=== PATIENT | male | born 1960 | race Caucasian/White ===

== ENCOUNTER 2020-07-24 08:27 | Outpatient (REF) | payer OTHER, SELFPAY ==
--- NOTE | 2020-07-24 08:37 | XR_ITS ---
EXAMINATION: XR RIBS, BILATERAL. Chest. CLINICAL INFORMATION: Chest and bilateral RIBS. COMPARISON: None TECHNIQUE: 3 views of the bilateral ribs were obtained. Chest one view. FINDINGS: Chest: Lungs are clear. No consolidation, pneumothorax, or pleural effusion. The cardiomediastinal silhouette and pulmonary vasculature are normal. BILATERAL RIBS: Multiple views of bilateral ribs reveal no visible fracture or bony abnormality. There is moderate spondylosis dorsal spine. XR/XR ribs BI 3V IMPRESSION: Unremarkable chest exam. Unremarkable bilateral rib exam.
== END 2020-07-24 08:28 | disposition home or self-care (01) ==
LOC: HO.XRAY 08:27
PROVIDERS: Visit Provider Family Medicine
DX: R07.81 Pleurodynia (principal)
CPT/HCPCS: 71110

== ENCOUNTER 2022-06-02 09:05 | Outpatient (REF) | payer OTHER, SELFPAY | END 2022-06-02 09:06 | disposition home or self-care (01) | LOC: HO.LAB 09:05 | PROVIDERS: Visit Provider Surgery | DX: L02.91 Cutaneous abscess, unspecified (principal) | CPT/HCPCS: 10060; 10061; 87070; 87077; 87186; 87205; 99202 ==

== ENCOUNTER 2022-08-24 12:05 | Outpatient (REF) | payer OTHER, SELFPAY ==
--- NOTE | ~2022-08-24 | XR_ITS ---
EXAMINATION: XR FINGER, LEFT CLINICAL INFORMATION: Left finger pain, question of foreign body. COMPARISON: None TECHNIQUE: 3 views of the left hand third digit. FINDINGS: In the volar soft tissues of the distal tip of the third digit is a triangular shaped mildly radiopaque density. A similar, but smaller adjacent ovoid shaped density is also seen. The underlying distal phalanx is intact. The remainder the digits are unremarkable. XR/XR finger LT min 2V IMPRESSION: Probable radiopaque foreign bodies overlying the volar soft tissues of the distal tip of the third digit correlating with patient history. No acute underlying osseous abnormality. .
== END 2022-08-24 12:06 | disposition home or self-care (01) ==
LOC: HO.XRAY 12:05
PROVIDERS: PCP Family Medicine; Visit Provider Family Medicine
DX: M79.645 Pain in left finger(s) (principal)
CPT/HCPCS: 73140

== ENCOUNTER 2022-09-03 13:17 | Outpatient (REF) | payer OTHER, SELFPAY ==
--- NOTE | 2022-09-03 09:30 | EMG_ITS ---
Right tibial and peroneal motor studies were performed. Right superficial peroneal and sural sensory studies were performed. Tibial H-reflex was obtained. Needle examination was performed. IMPRESSION: [id number] sensory and motor peripheral neuropathy. MD JOSÉ MIGUEL Peters/LARY / [id number]
== END 2022-09-03 13:18 | disposition home or self-care (01) ==
LOC: HO.NEURO 13:17
PROVIDERS: Visit Provider Family Medicine
DX: E11.51 Type 2 diabetes mellitus with diabetic peripheral angiopathy without gangrene (principal); E11.65 Type 2 diabetes mellitus with hyperglycemia; I10 Essential (primary) hypertension; E78.5 Hyperlipidemia, unspecified; M79.662 Pain in left lower leg; Q24.8 Other specified congenital malformations of heart
CPT/HCPCS: 95886; 95909

== ENCOUNTER 2023-04-26 08:17 | Outpatient (REF) | payer OTHER, SELFPAY ==
[2023-04-26 11:39] LABS: MANUAL DIFF FLAG NO
[2023-04-26 11:46] LABS: Basophils Percent Auto 0.7 % (0-2); Eosinophils Absolute Auto 0.1 X10*3/uL (0.0-0.4); Eosinophils Percent Auto 1.4 % (0-4); Hematocrit 44.6 % (42.0-52.0); Hemoglobin 15.6 g/dl (14.0-18.0); Imm Gran Abs Auto 0.01 X10*3/uL (0.00-0.03); Imm Gran Pct Auto 0.2 % (0.0-0.4); Lymphocytes Absolute Auto 1.2 X10*3/uL (1.2-4.9); Mean Corpuscular Hemoglobin 31.4 pg (27.0-33.0); Mean Corpuscular Volume 89.7 fL (80.0-98.0); Mean Platelet Volume 11.7 fL (9.4-12.4); Monocytes Absolute Auto 0.4 X10*3/uL (0.1-1.2); Monocytes Percent Auto 7.9 % (2-11); Neutrophils Absolute Auto 2.8 x10*3/uL (2.0-8.3); Neutrophils Percent Auto 62.8 % (45-73); Platelet Count 154 X10*3/uL (160-400); Red Blood Count 4.97 X10*6/uL (4.60-5.80); Red Cell Distribution Width 12.4 % (11.0-16.0); White Blood Count 4.4 X10*3/uL (4.8-10.8)
[2023-04-26 12:07] LABS: Alanine Aminotransferase 14 U/L (0-40); Albumin Level 4.5 g/dL (3.5-5.0); Alkaline Phosphatase 70 U/L (39-117); Anion Gap 12 (12-20); Aspartate Amino Transferase 16 U/L (5-37); Bilirubin Total 0.3 mg/dL (0.0-1.0); Blood Urea Nitrogen 21 mg/dL (9-16); Calcium 10.1 mg/dL (8.4-10.2); Carbon Dioxide 28 mmol/L (22-29); Chloride 104 mmol/L (96-108); Estimated Glomerular Filt Rate > 60; Glucose Random 198 mg/dL (60-115); Potassium 4.5 mmol/L (3.3-5.1); Sodium 139 mmol/L (135-145); Total Protein 7.1 g/dL (6.5-8.0)
[2023-04-26 12:24] LABS: TSH reflex Free T4 0.96 uIU/mL (0.32-4.0)
[2023-04-26 12:30] LABS: Cholesterol 232 mg/dL (<200); HDL Cholesterol 38 mg/dL (>40); LDL Cholesterol Calculated 173 mg/dL (<100); Triglycerides 107 mg/dL (<150)
[2023-04-26 12:31] LABS: Creatinine Urine 81.72 mg/dL; Microalbum/Creatinine Ratio Ur 13.4 ug/mg cr (<30)
[2023-04-26 12:59] LABS: Folate 14.1 ng/mL (> or = 4.0); Prostate Specific Antigen 0.42 ng/mL (<0.05-4.0); Vitamin B12 412 pg/mL (200-900)
[2023-04-26 14:42] LABS: Reflex LDLD? No
[2023-05-02 03:04] LABS: Testosterone, Free 40.6 pg/mL (35.0-155.0); Testosterone, Total 414 ng/dL (250-1100)
== END 2023-04-26 08:18 | disposition home or self-care (01) ==
LOC: HO.HHCL 08:17
PROVIDERS: Visit Provider Family Medicine
DX: R63.4 Abnormal weight loss (principal); N52.9 Male erectile dysfunction, unspecified; E11.65 Type 2 diabetes mellitus with hyperglycemia; Z12.5 Encounter for screening for malignant neoplasm of prostate
CPT/HCPCS: 36415; 80053; 80061; 82043; 82570; 82607; 82746; 84153; 84402; 84403; 84443; 85025

== ENCOUNTER 2023-06-03 08:50 | Outpatient (REF) | payer OTHER, SELFPAY ==
--- NOTE | ~2023-06-03 | CT_ITS ---
EXAMINATION: CT ABDOMEN AND PELVIS WITH CONTRAST CLINICAL INFORMATION: Weight loss, nausea, vomiting. COMPARISON: CT abdomen and pelvis 02/23/2019. TECHNIQUE: Multidetector volumetric images were obtained from the superior aspect of the liver through the pubic symphysis following administration 85 mL of Omnipaque 350 intravenous contrast. Sagittal and coronal reformatted images were obtained on the technologist's workstation. Oral contrast: No This CT examination was performed using dose optimization techniques as appropriate, variously including the following: *Automated exposure control *Adjustment of mA and/or kV according to patient size (this includes techniques or standardized protocols for targeted exams where dose is matched to indication/reason for exam; i.e. extremities or head) *Use of iterative reconstruction technique DLP: 364 mGy-cm FINDINGS: LUNG BASES: Motion artifact limits evaluation but no suspicious nodule. Small hiatal hernia. LIVER, GALLBLADDER, AND BILIARY TREE: The liver is normal in size, shape, and attenuation. No focal hepatic lesion or biliary ductal dilatation is present. The gallbladder is unremarkable with no evidence of radiopaque gallstones, gallbladder wall thickening, or obvious pericholecystic inflammatory changes. PANCREAS: No discrete pancreatic mass. No pancreatic ductal dilatation. SPLEEN: The spleen is enlarged measuring 14.1 cm. No mass. ADRENAL GLANDS: No adrenal mass. KIDNEYS AND URETERS: The kidneys measure long in length 14.0 cm on the right and 14.3 cm on the left. Symmetric nephrograms. Simple cyst in the mid left kidney posteriorly. Additional tiny cortical hypodensities in both kidneys are too small to characterize but likely cysts. No nephrolithiasis or hydronephrosis. BLADDER: Unremarkable. GASTROINTESTINAL TRACT: The small bowel is normal in caliber. The appendix appears normal. Large bowel is normal in caliber. No focal inflammatory changes. No mesenteric mass or fluid. ABDOMINAL WALL: Small fat-containing periumbilical hernia. LYMPH NODES: No lymphadenopathy. VASCULAR: Mild aortoiliac atherosclerosis. No aortic aneurysm. PELVIC VISCERA: Unremarkable. OSSEOUS STRUCTURES: Degenerative changes in the spine. CT/CT abdomen pelvis w IV con IMPRESSION: Enlarged kidneys may relate to body habitus. This can be seen with nephropathy. Correlate with history, renal function and urinalysis. Mild nonspecific splenomegaly. No lymphadenopathy. No abdominal mass. Fleischner guidelines were followed.
[2023-06-03] MEDS: iohexoL 350 MG/ML 100 ML INFUS..BTL 85 ML IV (11:19)
[2023-06-03] MEDS: Barium Sulfate Oral (Berry) 450 ML ORAL.SUSP 900 ML PO (11:19)
[2023-06-04 08:07] LABS: Creatinine POC 0.6 mg/dL (0.5-1.4); GFR POC > 60
== END 2023-06-03 08:51 | disposition home or self-care (01) ==
LOC: HO.CT 08:50
PROVIDERS: Visit Provider Family Medicine
DX: R11.0 Nausea (principal); D12.6 Benign neoplasm of colon, unspecified
CPT/HCPCS: 74177; 82565; Q9967

== ENCOUNTER 2023-07-27 15:05 | Outpatient (REF) | payer OTHER, SELFPAY ==
--- NOTE | ~2023-07-27 | XR_ITS ---
EXAMINATION: XR CERVICAL SPINE CLINICAL INFORMATION: Chronic neck pain. Patient states 2 months of neck pain COMPARISON: None available. TECHNIQUE: Following views of the cervical spine were obtained. FINDINGS: The tip of the odontoid is partly obscured on the open-mouth view. There is no fracture. Prevertebral soft tissues are within normal limits. The height of the vertebral bodies and disc spaces is well-maintained. There is no subluxation. A few early marginal osteophytes are seen. The neural foramina are patent. XR/XR cervical spine 4V IMPRESSION: 1. No acute bony abnormality. 2. A few early marginal osteophytes are seen.
== END 2023-07-27 15:06 | disposition home or self-care (01) ==
LOC: HO.HHCX 15:05
PROVIDERS: Visit Provider Family Medicine
DX: M54.2 Cervicalgia (principal)
CPT/HCPCS: 72050

== ENCOUNTER 2024-03-02 11:09 | Outpatient (REF) | payer OTHER, SELFPAY ==
[2024-03-02 13:07] LABS: MANUAL DIFF FLAG NO
[2024-03-02 13:13] LABS: Basophils Percent Auto 0.6 % (0-2); Eosinophils Absolute Auto 0.1 X10*3/uL (0.0-0.4); Eosinophils Percent Auto 0.9 % (0-4); Hematocrit 43.4 % (42.0-52.0); Hemoglobin 14.8 g/dl (14.0-18.0); Imm Gran Abs Auto 0.04 X10*3/uL (0.00-0.03); Imm Gran Pct Auto 0.6 % (0.0-0.4); Lymphocytes Absolute Auto 0.7 X10*3/uL (1.2-4.9); Lymphocytes Percent Auto 10.1 % (20-40); Mean Corpuscular HGB Conc 34.1 g/dl (31.0-36.0); Mean Corpuscular Hemoglobin 31.2 pg (27.0-33.0); Mean Corpuscular Volume 91.4 fL (80.0-98.0); Monocytes Absolute Auto 0.4 X10*3/uL (0.1-1.2); Monocytes Percent Auto 6.3 % (2-11); Neutrophils Absolute Auto 5.4 x10*3/uL (2.0-8.3); Neutrophils Percent Auto 81.5 % (45-73); Platelet Count 143 X10*3/uL (160-400); Red Blood Count 4.75 X10*6/uL (4.60-5.80); Red Cell Distribution Width 12.5 % (11.0-16.0); White Blood Count 6.7 X10*3/uL (4.8-10.8)
[2024-03-02 13:36] LABS: Alanine Aminotransferase 13 U/L (0-40); Albumin Level 4.4 g/dL (3.5-5.0); Alkaline Phosphatase 66 U/L (39-117); Anion Gap 15 (12-20); Aspartate Amino Transferase 13 U/L (5-37); Bilirubin Total 0.4 mg/dL (0.0-1.0); Blood Urea Nitrogen 18 mg/dL (9-16); C Reactive Protein 0.44 mg/dL (< or = 0.50); Calcium 9.9 mg/dL (8.4-10.2); Carbon Dioxide 26 mmol/L (22-29); Chloride 101 mmol/L (96-108); Cholesterol 219 mg/dL (<200); Estimated Glomerular Filt Rate > 60; Glucose Random 298 mg/dL (60-115); HDL Cholesterol 43 mg/dL (>40); LDL Cholesterol Calculated 150 mg/dL (<100); Sodium 138 mmol/L (135-145); Triglycerides 134 mg/dL (<150)
[2024-03-02 13:51] LABS: Erythrocyte Sedimentation Rate 3 MM/HR (0-15)
[2024-03-02 13:58] LABS: Microalbumin Urine < 5.0 mg/L
[2024-03-02 14:02] LABS: Reflex LDLD? No
[2024-03-02 14:03] LABS: Folate 13.4 ng/mL (> or = 4.0); Vitamin B12 302 pg/mL (200-900)
[2024-03-02 14:08] LABS: Uric Acid 3.5 mg/dL (3.4-7.0)
== END 2024-03-02 11:10 | disposition home or self-care (01) ==
LOC: HO.HHCL 11:09
PROVIDERS: Visit Provider Family Medicine
DX: M79.642 Pain in left hand (principal); M79.641 Pain in right hand; E11.65 Type 2 diabetes mellitus with hyperglycemia; D69.6 Thrombocytopenia, unspecified; E78.5 Hyperlipidemia, unspecified; I10 Essential (primary) hypertension
CPT/HCPCS: 36415; 80053; 80061; 82570; 82607; 82746; 84550; 85025; 85652; 86140

== ENCOUNTER 2024-03-06 08:51 | Outpatient (REF) | payer OTHER, SELFPAY ==
--- NOTE | ~2024-03-06 | XR_ITS ---
EXAMINATION: 1. RADIOGRAPHS RIGHT HAND 2. RADIOGRAPHS LEFT HAND 3. RADIOGRAPHS RIGHT KNEE 4. RADIOGRAPHS LEFT KNEE CLINICAL INFORMATION: Bilateral hand pain and swelling. Chronic bilateral knee pain. No known injury. COMPARISON: Left finger x-rays 08/24/2022 and bilateral knee x-rays 05/17/2019 TECHNIQUE: 3 views of each hand and 3 views of each knee were obtained. FINDINGS: Right hand: Visualized portion of the distal right radius and ulna demonstrate no fracture. Carpal rows are maintained. No carpal bone fracture. No metacarpal or phalangeal fracture. Mild degenerative changes of scattered IP joints. No localized soft tissue swelling. Left hand: Visualized portion of the distal left radius and ulna demonstrate no fracture. Carpal rows are maintained. No carpal bone fracture. No metacarpal or phalangeal fracture. Mild degenerative changes of scattered IP joints. No localized soft tissue swelling. Right knee: No fracture or dislocation. No suprapatellar joint effusion. Mild narrowing of the medial joint space height. No localized soft tissue swelling. Vascular calcifications noted. Left knee: No fracture or dislocation. No suprapatellar joint effusion. Mild narrowing of the medial joint space height. No localized soft tissue swelling. Vascular catheter lesions noted. XR/XR hand RT min 3V IMPRESSION: 1. Mild degenerative changes of both hands without fracture. 2. Mild degenerative changes of both knees without fracture, dislocation or joint effusion.
--- NOTE | ~2024-03-06 | XR_ITS ---
EXAMINATION: 1. RADIOGRAPHS RIGHT HAND 2. RADIOGRAPHS LEFT HAND 3. RADIOGRAPHS RIGHT KNEE 4. RADIOGRAPHS LEFT KNEE CLINICAL INFORMATION: Bilateral hand pain and swelling. Chronic bilateral knee pain. No known injury. COMPARISON: Left finger x-rays 08/24/2022 and bilateral knee x-rays 05/17/2019 TECHNIQUE: 3 views of each hand and 3 views of each knee were obtained. FINDINGS: Right hand: Visualized portion of the distal right radius and ulna demonstrate no fracture. Carpal rows are maintained. No carpal bone fracture. No metacarpal or phalangeal fracture. Mild degenerative changes of scattered IP joints. No localized soft tissue swelling. Left hand: Visualized portion of the distal left radius and ulna demonstrate no fracture. Carpal rows are maintained. No carpal bone fracture. No metacarpal or phalangeal fracture. Mild degenerative changes of scattered IP joints. No localized soft tissue swelling. Right knee: No fracture or dislocation. No suprapatellar joint effusion. Mild narrowing of the medial joint space height. No localized soft tissue swelling. Vascular calcifications noted. Left knee: No fracture or dislocation. No suprapatellar joint effusion. Mild narrowing of the medial joint space height. No localized soft tissue swelling. Vascular catheter lesions noted. XR/XR hand LT min 3V IMPRESSION: 1. Mild degenerative changes of both hands without fracture. 2. Mild degenerative changes of both knees without fracture, dislocation or joint effusion.
--- NOTE | ~2024-03-06 | XR_ITS ---
EXAMINATION: 1. RADIOGRAPHS RIGHT HAND 2. RADIOGRAPHS LEFT HAND 3. RADIOGRAPHS RIGHT KNEE 4. RADIOGRAPHS LEFT KNEE CLINICAL INFORMATION: Bilateral hand pain and swelling. Chronic bilateral knee pain. No known injury. COMPARISON: Left finger x-rays 08/24/2022 and bilateral knee x-rays 05/17/2019 TECHNIQUE: 3 views of each hand and 3 views of each knee were obtained. FINDINGS: Right hand: Visualized portion of the distal right radius and ulna demonstrate no fracture. Carpal rows are maintained. No carpal bone fracture. No metacarpal or phalangeal fracture. Mild degenerative changes of scattered IP joints. No localized soft tissue swelling. Left hand: Visualized portion of the distal left radius and ulna demonstrate no fracture. Carpal rows are maintained. No carpal bone fracture. No metacarpal or phalangeal fracture. Mild degenerative changes of scattered IP joints. No localized soft tissue swelling. Right knee: No fracture or dislocation. No suprapatellar joint effusion. Mild narrowing of the medial joint space height. No localized soft tissue swelling. Vascular calcifications noted. Left knee: No fracture or dislocation. No suprapatellar joint effusion. Mild narrowing of the medial joint space height. No localized soft tissue swelling. Vascular catheter lesions noted. XR/XR knee LT 3V IMPRESSION: 1. Mild degenerative changes of both hands without fracture. 2. Mild degenerative changes of both knees without fracture, dislocation or joint effusion.
--- NOTE | ~2024-03-06 | XR_ITS ---
EXAMINATION: 1. RADIOGRAPHS RIGHT HAND 2. RADIOGRAPHS LEFT HAND 3. RADIOGRAPHS RIGHT KNEE 4. RADIOGRAPHS LEFT KNEE CLINICAL INFORMATION: Bilateral hand pain and swelling. Chronic bilateral knee pain. No known injury. COMPARISON: Left finger x-rays 08/24/2022 and bilateral knee x-rays 05/17/2019 TECHNIQUE: 3 views of each hand and 3 views of each knee were obtained. FINDINGS: Right hand: Visualized portion of the distal right radius and ulna demonstrate no fracture. Carpal rows are maintained. No carpal bone fracture. No metacarpal or phalangeal fracture. Mild degenerative changes of scattered IP joints. No localized soft tissue swelling. Left hand: Visualized portion of the distal left radius and ulna demonstrate no fracture. Carpal rows are maintained. No carpal bone fracture. No metacarpal or phalangeal fracture. Mild degenerative changes of scattered IP joints. No localized soft tissue swelling. Right knee: No fracture or dislocation. No suprapatellar joint effusion. Mild narrowing of the medial joint space height. No localized soft tissue swelling. Vascular calcifications noted. Left knee: No fracture or dislocation. No suprapatellar joint effusion. Mild narrowing of the medial joint space height. No localized soft tissue swelling. Vascular catheter lesions noted. XR/XR knee RT 3V IMPRESSION: 1. Mild degenerative changes of both hands without fracture. 2. Mild degenerative changes of both knees without fracture, dislocation or joint effusion.
== END 2024-03-06 08:52 | disposition home or self-care (01) ==
LOC: HO.HHCX 08:51
PROVIDERS: Visit Provider Family Medicine
DX: M25.561 Pain in right knee (principal); M25.562 Pain in left knee; G89.29 Other chronic pain; M79.642 Pain in left hand; M79.641 Pain in right hand
CPT/HCPCS: 73130; 73562

== ENCOUNTER → 2024-03-23 14:13 | Outpatient (REF) | payer OTHER, SELFPAY ==
--- NOTE | ~2024-03-23 | US_ITS ---
EXAMINATION: NONINVASIVE ASSESSMENT OF THE ARTERIES OF BOTH LOWER EXTREMITIES WITH PVR EXAM AND BILATERAL LOWER EXTREMITY DUPLEX Kaci Moreira MD CLINICAL INFORMATION: Claudication TECHNIQUE: Ankle pulse volume recordings, ankle pressure measurements and ankle brachial indices were obtained of the lower extremity arterial system bilaterally in addition to duplex Doppler techniques with wave form analysis and measurement of velocities in the common femoral, profunda femoral, superficial femoral, popliteal and tibial arteries. The study was performed only at rest. COMPARISON: None FINDINGS: a) AT REST: RIGHT LE. The right ankle-brachial index is: 0.92 * >0.97-1.25 = normal - no significant arterial disease * 0.75-0.96 = mild peripheral arterial disease * 0.5-0.74 = moderate peripheral arterial disease * <0.50 = severe peripheral arterial disease 2. Right ankle pressure: Abnormal 3. Right ankle PVR waveform: Abnormal 4. Right direct duplex Doppler findings: Common femoral artery: 114m/s, Multiphasic Profunda femoris artery: 112m/s, Multiphasic Superficial femoral artery (proximal): 63cm/s, Multiphasic Superficial femoral artery (mid): 74cm/s, Multiphasic Superficial femoral artery (distal): 107m/s, Multiphasic Proximal Popliteal artery: 75cm/s, Multiphasic Mid posterior tibial artery: 118m/s, Multiphasic LEFT LE. The left ankle-brachial index is: 1.10 * >0.97-1.25 = normal - no significant arterial disease * 0.75-0.96 = mild peripheral arterial disease * 0.5-0.74 = moderate peripheral arterial disease * <0.50 = severe peripheral arterial disease 2. Left ankle pressure: Normal 3. Left ankle PVR waveform: normal. 4. Left direct duplex Doppler findings: Common femoral artery: 132m/s, Multiphasic Profunda femoris artery: 115m/s, Multiphasic Superficial femoral artery (proximal): 87cm/s, Multiphasic Superficial femoral artery (mid): 110m/s, Multiphasic Superficial femoral artery (distal): 65cm/s, Multiphasic Proximal Popliteal artery: 59cm/s, Multiphasic Mid posterior tibial artery: 61cm/s, Multiphasic US/US arterial duplex BI w/ JANE IMPRESSION: RIGHT LEG: Mild peripheral arterial disease. LEFT LEG: No hemodynamically significant stenosis.
--- NOTE | 2024-03-23 14:15 | CA_ITS ---
Transthoracic Echocardiogram Patient (Last, First, Middle): Ben Cardona, Gender: Male Date of : 1960 Age: 63 Procedure Date: 03/23/2024 Procedure Type: Transthoracic Echocardiogram Location: OP Height: 175.26 cm Weight: 77.11 kg BSA: 1.93 m2 Heart Rate: 79 bpm BP: 102 / 60 mmHg Residential Door Unit Installer: SB Referring MD: Mamie Bolanos MD Edi Manager: Cyrus Figueroa MD Symptoms: L VENTRICULAR OUTFLOW TRACTOBSTRUCTION Q24.8 Study Quality: Adequate ECG Rhythm: Sinus Conclusions: - 1. Normal LV ejection fraction 60-65% with moderate asymmetric septal hypertrophy with dynamic obstructive physiology 2. Mild late systolic eccentric mitral regurgitation 3. Mildly dilated left atrium 4. Normal RV systolic pressure 5. No gross pericardial effusion Findings Left Ventricle Normal left ventricular size, thickness, and systolic function. The visually estimated ejection fraction is between 65-70%. There is systolic anterior motion of the leaflets of the mitral valve. Spectral Doppler is indicative of an impaired relaxation filling pattern. Elevated filling pressures. E/E prime ratio is >15, consistent with elevated filling pressures. There is moderate septal asymmetric hypertrophy. peak gradient at rest appears to be 10 mm Hg which increases to 62 mm Hg with Valsalva although alignment of Doppler seems to be slightly off axis. Unlikely that this represents mitral regurgitation envelope. Overall suggestive of dynamic obstructive physiology at the level of LVOT Atria The left atrium is mildly dilated. There is no evidence of interatrial shunt. The right atrium is normal in size. Aortic Valve Normal aortic valve structure and function. There is no aortic valve stenosis. There is no aortic valve regurgitation. Mitral Valve Normal mitral valve structure and function. There is mild mitral valve regurgitation. There is no mitral valve stenosis. late systolic mild eccentric Pulmonic Valve The pulmonic valve is likely normal. Tricuspid Valve Normal tricuspid valve structure. There is mild tricuspid valve regurgitation. The right ventricular systolic pressure is normal. The right ventricular systolic pressure is 26 mmHg. Normal right atrial pressure. There is no evidence of pulmonary hypertension. Great Vessels The pulmonary artery was not well visualized. There is no dilatation of the ascending aorta measuring 3.20 cm. Venous The inferior vena cava is normal in size and collapses greater than 50% with inspiration. Pericardium/Pleural There is no evidence of pericardial effusion. Prior Study Comparison No prior study available for comparison. Measurements 2D Linear Measurements IVSd: 1.57 0.6-0.9/0.6-1.0 cm LVIDd: 3.48 3.9-5.3/4.2-5.9 cm LVIDd Index: 1.80 2.4-3.2/2.2-3.1 cm/m2 LVIDs: 2.39 2.0-3.6 cm LVPWd: 0.95 0.7-1.1 cm LA Diam: 3.60 2.7-3.8/3.0-4.0 cm LAIDs Index: 1.87 1.5-2.3 cm/m2 LV Mass: 181.03 67-162/88-224 g LV Mass Index: 93.80 43-95/49-115 g/m2 LVOT Diam: 2.10 3.0+(-)1.3 cm 2D Systolic Function EF 4C: 60.80 >55% EF 2C: 69.60 >55% EF BiP: 65.30 >55% Mitral Valve MV Pk E: 0.71 MV PK A: 0.71 MV Decel Time: 190.00 E/A: 1.00 E'Lateral: 2.39 E'Medial: 3.81 E/E' Med: 18.70 E/E' Lat: 29.70 PHT: 56.00 MVA PHT: 3.93 Decel Shelby: 3.74 Aortic Valve AoV Pk Mitchell: 1.66 AoV Mn Mitchell: 1.24 AoV VTI: 0.34 AoV Pk Grad: 11.00 Aov Mn Grad: 7.00 TJA Cont.VTI: 3.53 LVOT LVOT Pk Mitchell: 1.65 LVOT Mn Mitchell: 1.24 LVOT VTI: 0.35 LVOT Pk Grad: 11.00 LVOT Mn Grad: 7.00 LVOT Diam: 2.10 LVOT Area: 3.46 Diastolic Function MV Pk E: 0.71 MV Pk A: 0.71 E/A: 1.00 E'Medial: 3.81 E/E' Med: 18.70 E' Laterial: 2.39 E/E' Lat: 29.70 Right Ventricle TAPSE (mm): 23.00 TVS' Mitchell: 17.30 Tricuspid Valve TR Pk Mitchell: 2.38 TR Pk Grad: 23.00 RA Press: 3.00 RVSP: 26.00 Great Vessels Aorta Sinus of Valsalva: 3.20 2.0-3.5 cm Ao Asc: 3.20 2.1-3.4 cm Ao Arch: 3.10 Pulmonary Valve PV Pk Mitchell: 0.93 Peak PV Grad: 3.00 Updated in Other Vendor System with Status of Final Cyrus Figueroa MD electronically signed on 03/24/2024 11:34:26 AM with status of Final
== END ==
LOC: HO.CARD 14:13
PROVIDERS: PCP Family Medicine; Visit Provider Family Medicine
DX: Q24.8 Other specified congenital malformations of heart (principal); I10 Essential (primary) hypertension; M79.604 Pain in right leg; M79.605 Pain in left leg
CPT/HCPCS: 93306; 93922; 93925

== ENCOUNTER → 2024-03-23 14:15 | Outpatient (BNV) | payer OTHER, SELFPAY | PROVIDERS: PCP Family Medicine; Visit Provider Internal Medicine Cardiovascular Disease | DX: Q24.8 Other specified congenital malformations of heart (principal); I42.1 Obstructive hypertrophic cardiomyopathy; I34.0 Nonrheumatic mitral (valve) insufficiency; I36.1 Nonrheumatic tricuspid (valve) insufficiency | CPT/HCPCS: 93303; 93320; 93325 ==

== ENCOUNTER 2024-05-22 08:58 | Outpatient (REF) | payer OTHER, SELFPAY ==
[2024-05-22 11:25] LABS: Appearance Urine Clear; Color Urine Yellow; Glucose Urine UA >=1000 mg/dL (Negative); Leukocyte Esterase Urine Negative (Negative); Nitrite Urine Negative (Negative); PH 5.5 (5.0-9.0); Specific Gravity - Urine >= 1.030 (1.005-1.025); UMIC TRIGGER UACC YES; Urine Blood Negative (Negative); Urine Ketones Negative (Negative); Urine Protein Negative (Neg-Trace)
[2024-05-22 11:30] LABS: Bacteria Urine None Seen (None Seen); Hyaline Casts Urine 0-2 /LPF (0-2); RBC Urine 0-2 /HPF (0-2); Squamous Epithelial Cell Urine 0-2 /HPF (0-2); WBC Urine 0-5 /HPF (0-5)
[2024-05-22 12:19] LABS: Prostate Specific Antigen Scr 0.42 ng/mL (<0.05-4.0)
== END 2024-05-22 08:59 | disposition home or self-care (01) ==
LOC: HO.HHCL 08:58
PROVIDERS: Visit Provider Family Medicine
DX: N52.9 Male erectile dysfunction, unspecified (principal); Z12.5 Encounter for screening for malignant neoplasm of prostate
CPT/HCPCS: 36415; 81001; 84153

== ENCOUNTER 2024-06-26 07:11 | Day surgery (SDC) | payer OTHER, SELFPAY ==
[2024-06-22 13:19] VITALS: BMI 25.0
--- NOTE | 2024-06-23 09:07 | P.CONAN_ITS ---
Documented by User: Sophia Novoa NP 06/23/24 14:17 HPI - Anesthesia Eval Consult details Narrative: 64yo M for Colonoscopy Per 03/2024 Echo: moderate asymmetric septal hypertrophy with dynamic obstructive physiology. Recent eval by PCP with no CP/SOB, nml cardiopulmo exam. No cardiac eval since [address] Burrell Anesthesia Pre-Procedure Meds Is the patient on any of the following meds?: GLP1/DPP4 and SGLT2 Inhib PMFSH Active Problems Active Problems: All Active Problems Infection of skin due to methicillin resistant Staphylococcus aureus (MRSA) (Acute) Abscess (Acute) Past Medical History Medical History (Updated 06/22/24 @ 13:45 by Latha Barragan RN) Glaucoma Elevated cholesterol Otitis media Left ventricular outflow tract obstruction Essential hypertension Diabetic polyneuropathy Tubular adenoma of colon GERD (gastroesophageal reflux disease) Anxiety Diabetes mellitus Surgical History Surgical History (Updated 06/22/24 @ 13:22 by Latha Barragan RN) Hx of knee surgery History of esophagogastroduodenoscopy (EGD) H/O colonoscopy Social History Social History Alcohol intake: current Alcohol intake frequency: holidays/special occasions only Patient Tobacco Use Status: Former Tobacco user Tobacco use type: Cigarette Use of substances other than those prescribed or required for medical reasons: Yes Are you DNR?: No Advance Directives: No Advance Directives Information Provided: Yes Advance Directives on File: No Recently lost weight without trying: No Nutrition Risks: No Nutritional Risk Poor oral hygiene: No Meds Allergies Allergy/AdvReac Type Severity Reaction Status Date / Time No Known Allergies Allergy Unverified 06/09/22 10:16 Home Medications ?Medication ?Instructions ?Recorded ?Confirmed ?Last Taken ?Type alcohol swabs (Alcohol Prep Pads) 1 pad topical TID 06/02/22 06/09/22 Unknown History aspirin 81 mg tablet,delayed 81 mg PO DAILY 06/02/22 06/22/24 Unknown History release atorvastatin 80 mg tablet 80 mg PO BEDTIME 06/02/22 06/22/24 Unknown History blood sugar diagnostic (FreeStyle #10 ea 06/02/22 06/09/22 Unknown History Lite Strips) dulaglutide 3 mg/0.5 mL 3 mg subcut QWEEK 1006/22/24 06/19/24 History subcutaneous pen injector (Trulicity) empagliflozin 25 mg tablet 25 mg PO QAM 06/02/22 06/22/24 06/24/24 History (Jardiance) fenofibrate 160 mg tablet 160 mg PO QAM 06/02/22 06/22/24 Unknown History lancets 33 gauge (TRUEplus Lancets) #100 ea 06/02/22 06/09/22 Unknown History lisinopril 40 mg tablet 40 mg PO QAM 06/02/22 06/22/24 Unknown History metformin 1,000 mg tablet 1,000 mg PO BID 06/02/22 06/22/24 Unknown History metoprolol succinate 100 mg 100 mg PO DAILY 06/02/22 06/22/24 Unknown History tablet,extended release 24 hr omeprazole 40 mg capsule,delayed 40 mg PO DAILY 06/02/22 06/22/24 Unknown History release sertraline 100 mg tablet 100 mg PO BID 06/02/22 06/22/24 Unknown History Exam Height,Weight and Vital Signs: Height 5 ft 9 in Weight 76.657 kg Pertinent Lab Results Pertinent Lab Results: Laboratory Tests 03/02/24 11:16 WBC 6.7 Hgb 14.8 Hct 43.4 Plt Count 143 L Sodium 138 Potassium 4.0 Chloride 101 Carbon Dioxide 26 BUN 18 H Creatinine 0.98 Narrative Narrative: ECHO 03/2024 Conclusions: - 1. Normal LV ejection fraction 60-65% with moderate asymmetric septal hypertrophy with dynamic obstructive physiology 2. Mild late systolic eccentric mitral regurgitation 3. Mildly dilated left atrium 4. Normal RV systolic pressure 5. No gross pericardial effusion Assessment and Plan Assessment Anesthesia Assessment: Chart Reviewed Documented by User: Hema Hugo MD 06/26/24 08:05 [facility] Past Medical History Medical History (Updated 06/22/24 @ 13:45 by Latha Barragan RN) Glaucoma Elevated cholesterol Otitis media Left ventricular outflow tract obstruction Essential hypertension Diabetic polyneuropathy Tubular adenoma of colon GERD (gastroesophageal reflux disease) Anxiety Diabetes mellitus Family History Family history of problems with anesthesia: No Surgical History Surgical History (Updated 06/22/24 @ 13:22 by Latha Barragan RN) Hx of knee surgery History of esophagogastroduodenoscopy (EGD) H/O colonoscopy History of Problems with Anesthesia: No Social History Social History Alcohol intake: current Alcohol intake frequency: holidays/special occasions only Patient Tobacco Use Status: Former Tobacco user Tobacco use type: Cigarette Use of substances other than those prescribed or required for medical reasons: Yes Are you DNR?: No Advance Directives: No Advance Directives Information Provided: Yes Advance Directives on File: No Recently lost weight without trying: No Nutrition Risks: No Nutritional Risk Poor oral hygiene: No Meds Allergies Allergy/AdvReac Type Severity Reaction Status Date / Time No Known Allergies Allergy Unverified 06/09/22 10:16 Home Medications ?Medication ?Instructions ?Recorded ?Confirmed ?Last Taken ?Type alcohol swabs (Alcohol Prep Pads) 1 pad topical TID 06/02/22 06/09/22 Unknown History aspirin 81 mg tablet,delayed 81 mg PO DAILY 06/02/22 06/22/24 Unknown History release atorvastatin 80 mg tablet 80 mg PO BEDTIME 06/02/22 06/22/24 Unknown History blood sugar diagnostic (FreeStyle #10 ea 06/02/22 06/09/22 Unknown History Lite Strips) dulaglutide 3 mg/0.5 mL 3 mg subcut QWEEK 06/02/22 06/22/24 06/19/24 History subcutaneous pen injector (Trulicity) empagliflozin 25 mg tablet 25 mg PO QAM 06/02/22 06/22/24 06/24/24 History (Jardiance) fenofibrate 160 mg tablet 160 mg PO QAM 06/02/22 06/22/24 Unknown History lancets 33 gauge (TRUEplus Lancets) #100 ea 06/02/22 06/09/22 Unknown History lisinopril 40 mg tablet 40 mg PO QAM 06/02/22 06/22/24 Unknown History metformin 1,000 mg tablet 1,000 mg PO BID 06/02/22 06/22/24 Unknown History metoprolol succinate 100 mg 100 mg PO DAILY 06/02/22 06/22/24 Unknown History tablet,extended release 24 hr omeprazole 40 mg capsule,delayed 40 mg PO DAILY 06/02/22 06/22/24 Unknown History release sertraline 100 mg tablet 100 mg PO BID 06/02/22 06/22/24 Unknown History Exam Airway Mallampati Class: III TM Dist: >3cm Neck ROM: Full Partial: Upper and Lower Loose/Missing/Broken Teeth: Yes, Upper and Lower Assessment and Plan Assessment Anesthesia Assessment: Anesthesia Plan Discussed Final Anesthetic Review Family History of Problems with Anesthesia: No History of Problems with Anesthesia: No NPO: Yes ASA Class: III Final Preanesthetic Review: No Changes in Pt Med Stat, Meds/Allgs Chart Reviewed, Consent Obtained/Reviewed and Anes Risks/Benef Reviewed Patient Risk: Intermediate Procedure Risk: Low Anesthetic Plan Anesthetic Plan: TIVA Disposition: Standard PACU
[2024-06-26 07:24] VITALS: BMI 24.5
[2024-06-26 07:33] VITALS: BP 135/73; PULSE 80; RESP 16; TEMP 36; O2SAT 96
[2024-06-26 07:43] LABS: Glucose, Whole Blood 178 mg/dL (60-115)
[2024-06-26] MEDS: Lactated Ringers 1,000 ML 100 ML IVCONT (07:47)
[2024-06-26 09:05] VITALS: BP 79/47; PULSE 79; RESP 16; TEMP 36.1; O2SAT 97
--- NOTE | 2024-06-26 09:10 | PM.OP ---
Brief Operative Note Date of Service: 06/26/24 Pre-op diagnosis: Screening Post-op diagnosis: other (Diverticulosis) Procedure: Colonoscopy to the cecum Surgeon: Cordell Loza MD Anesthesia: MAC Was an Hearing Health Technician used for this Procedure?: No Estimated blood loss (mL): 0 Pathology: none sent Condition: stable Disposition: PACU
[2024-06-26 09:20] VITALS: BP 129/77; PULSE 67; RESP 14; TEMP 36.1; O2SAT 99
--- NOTE | 2024-06-26 10:06 | OP_ITS ---
DATE OF SERVICE: 06/26/2024 SURGEON: Cordell Loza MD INDICATIONS: The patient presents for evaluation of colorectal cancer screening and personal history of tubular adenoma of the colon. Full consent was obtained from him for this, including risks of bleeding and perforation. PREOPERATIVE DIAGNOSIS: POSTOPERATIVE DIAGNOSIS: PROCEDURE PERFORMED: Colonoscopy to the cecum. ESTIMATED BLOOD LOSS: COMPLICATIONS: ANESTHESIA: Medications used, monitored anesthesia care. ASSISTANTS: SPECIMENS: PREOPERATIVE DIAGNOSES: Colorectal cancer screening and personal history of tubular adenoma of the colon. POSTOPERATIVE DIAGNOSES: Colorectal cancer screening and personal history of tubular adenoma of the colon, diverticulosis, internal hemorrhoids, limited prep. DESCRIPTION OF PROCEDURE: The patient was placed in the left lateral decubitus position. The digital rectal exam revealed no abnormalities. The Olympus video pediatric colonoscope was entered into the rectum and advanced to the cecum. Once in the cecum, I did identify cecal pouch with appendiceal orifice and normal-appearing ileocecal valve. However, portions of the cecum were obscured by poor prep which could not be irrigated or suctioned away. There was transillumination of light deep in the right lower quadrant. Portions of the cecum I did visualize, appeared normal. Scope was then slowly withdrawn assessing all mucosal surfaces carefully. Preparation throughout the colon was also limited in different areas by poor prep, which could not be irrigated or suctioned away. I did not visualize any sign of polyps, colitis, nor angiodysplasia. There were some diverticula noted in the sigmoid colon. In the rectum, scope was retroflexed visualizing internal hemorrhoids, but no other pathology. The rectal mucosa appeared normal. Scope was straightened and withdrawn from the patient. He tolerated the procedure well and was returned to the recovery area in stable condition. IMPRESSION: 1. Diverticulosis. 2. Internal hemorrhoids. 3. Limited colonoscopy prep. PLAN: Given that this was his third colonoscopy and he has no particular GI symptoms, I do not think he needs a colonoscopy sooner than 5 years. However, I did give him written instructions that he should obtain a Cologuard test from his primary care physician and, if this is negative, then we would wait 5 years. If it is positive then I should be notified and we could then reschedule a colonoscopy with a better prep. He was advised to resume his aspirin and usual diabetes regimen today. MD MIKE Gamble/LARY / [phone] KAILA
== END 2024-06-26 10:03 | disposition home or self-care (01) ==
PROVIDERS: PCP Family Medicine; Visit Provider Internal Medicine
PROC: 0DJD8ZZ Inspection of Lower Intestinal Tract, Via Natural or Artificial Opening Endoscopic (ICD-10-PCS; CPT 45378; principal; 2024-06-26 08:20)
DX: Z12.11 Encounter for screening for malignant neoplasm of colon (principal); Z86.0101 Personal history of adenomatous and serrated colon polyps; K57.30 Diverticulosis of large intestine without perforation or abscess without bleeding; K64.8 Other hemorrhoids; K21.9 Gastro-esophageal reflux disease without esophagitis; I10 Essential (primary) hypertension; E78.5 Hyperlipidemia, unspecified; E11.9 Type 2 diabetes mellitus without complications; F32.A Depression, unspecified; Z79.82 Long term (current) use of aspirin; Z79.84 Long term (current) use of oral hypoglycemic drugs; Z79.85 Long-term (current) use of injectable non-insulin antidiabetic drugs; Z79.1 Long term (current) use of non-steroidal anti-inflammatories (NSAID); Z79.899 Other long term (current) drug therapy
CPT/HCPCS: G0105; 82947; J2003; J2704

== ENCOUNTER 2024-10-10 14:41 | Outpatient (REF) | payer MEDICAID, SELFPAY ==
--- OUTSIDE RECORDS SUMMARY | 2024-10-10 18:21 | XMS_ITS | Encounter Summary ---
Author Organization [employer] Address [address] [facility] 7t [place] [address] Care Team Providers Care Car Stower Name Role Phone Mamie Bolanos MD Primary Care Provider [phone] Jame Carpenter PharmD Unavailable [phone] Reason for Visit * Reason Onset Date Comments Nurse Triage 08/06/2023 Encounter Details Date Type Department Care Team ([facility] st Contact Info) Description 08/06/2023 Telephone [facility] MEDICINE [address] [place], [place] [phone] Mamie Bolanos MD [address] [place], [place] [phone] Nurse Triage Social History Tobacco Use Types Packs/Day Years Used Date Smoking Tobacco: Never Passive Smoke Exposure: Never Smokeless Tobacco: Never Depression Answer Date Recorded Patient Health Questionnaire-9 Score 14 01/12/2023 Housing Stability Answer Date Recorded What is your housing situation today? I have jean cerna 06/01/[address] you li ve. Do you have problems with any of the following? None of the above 06/01/2023 Food Insecurity Answer Date Recorded Within the past 12 months, y ou worried that your food would run out before you got money to buy more: Never True 06/01/2023 Within the past 12 months,th e food you bought just didn't last and you didn't have enough money to get more: Never True Transportation Answer Date Recorded In the past 12 months, has l ack of transportation kept you from medical appts, meetings, work or from getting things needed for daily living? No 06/01/2023 Utilities Answer Date Recorded In the past 12 months, has t he electric, gas, oil or water [employer] threatened to shut off services in your home? No 06/01/2023 Depression Answer Date Recorded Patient Health Questionnaire-2 Score 3 01/12/2023 Sex and Gender Information Value Date Recorded Sex Assigned at Male 06/15/2022 10:16 AM EDT Legal Sex Male 10:16 AM EDT Gender Identity Male 06/15/2022 10:16 AM EDT Sexual Orientation Choose not to disclose 2021 10:16 AM EDT documented as of this encounter Miscellaneous Notes * Telephone Encounter - Wendy Dixon RN - 08/06/2023 10:29 AM EST Called pt to triage, spoke to pt. Pt declines triage or appt at this time and is calling today regarding an expected script. Pt has had left shoulder pain radiating to the neck for a while and was seen in office by PCP on 07/27, and thought he was going to be scripted for something for pain. Pt wasoffered injection as well, declined. Pt has not received any medication to the pharmacy. Reviewed the notes of that visit, and do not see any mention of this. PCP not in office today. Will task to team nurses to follow up per PCP as needed. Advised home care: rest, ice, heat, OTC pain reliever as needed and call back if worsening or new concerns. Pt understands and agrees with plan. * Telephone Encounter - Crista Sher - 08/06/2023 9:43 AM EST Symptoms: Shoulder Pain - Not From Injury, Neck Pain - Not From Injury Outcome: Schedule an appointment to be seen within 24 hours Reason: Caller denied all higher acuity questions The caller accepted this outcome Pt is requesting medication but don't know the name. Angolan Speaker documented in this encounter Plan of Treatment Upcoming Encounters Date Type Department Care Team ([facility] st Contact Info) Description 10/12/2024 9:00 AM EST Medication Management [facility] MEDICINE [address] [place] [address] Jame Carpenter, PharmD [address] [place] [address] documented as of this encounter Goals Goal Patient Goal Type Associated Problems Recent Progress Patient-Stated? Author Blood Pressure < 140/90 Blood Pressure 123/69(2024 2:15 PM EST) No Jame Carpenter PharmD Hemoglobin A1c < 7 Result Component 8.8( 2:17 PM EST) No Jame Carpenter PharmD documented as of this encounter Visit Diagnoses Not on filedocumented in this encounter Additional Health Concerns Assessment Noted Time PHQ-9 Depression Total Score: 14 023 9:33 AM EDT documented as of this encounter Care Teams Car Stower Relationship Specialty Start Date End Date Mamie Bolanos MD [address] [place] [address]657 PCP - General Family Medicine 09/23/15 Jame Carpenter PharmD [address] [place] [address] Pharmacist Internal Medicine 07/21/23 documented as of this encounter
--- OUTSIDE RECORDS SUMMARY | 2024-10-10 18:21 | XMS_ITS | Encounter Summary ---
Author Organization [employer] Address [address] [facility] 7t [place] [address] Care Team Providers Care Personnel Security Specialist Name Role Phone Mamie Bolanos MD Primary Care Provider [phone] Jame Carpenter PharmD Unavailable [phone] Reason for Visit * Reason Comments Med Refill Encounter Details Date Type Department Care Team ([facility] st Contact Info) Description 04/18/2024 Refill [facility] MEDICINE [address] [place], [place] [phone] Mamie Bolanos MD [address] [place], [place] [phone] Social History Tobacco Use Types Packs/Day Years Used Date Smoking Tobacco: Never Passive Smoke Exposure: Never Smokeless Tobacco: Never Alcohol Answer Date Recorded Frequency of Alcohol Consumption Not on file 03/01/2024 Average Number of Drinks Not on file 024 Frequency of Binge Drinking Not on file 02/13 Score 0 03/01/2024 Depression Answer Date Recorded Patient Health Questionnaire-9 Score 5 03/01/2024 Patient Health Questionnaire-9 Score 5 03/01/2024 Last PHQ-9: Questionnaire Data Not on file 0 03/01/2024 Housing Stability Answer Date Recorded What is [...] t he electric, gas, oil or water company threatened to shut off services in your home? No 06/01/2023 Depression Answer Date Recorded Patient Health Questionnaire-2 Score 2 03/01/2024 Sex and Gender Information Value Date Recorded Sex Assigned at Male 06/15/2022 10:16 AM EDT Legal Sex Male 10:16 AM EDT Gender Identity Male 06/15/2022 10:16 AM EDT Sexual Orientation Choose not to disclose 2021 10:16 AM EDT documented as of this encounter Plan of Treatment Upcoming Encounters Date Type Department Care Team (Late st Contact Info) Description 10/12/2024 9:00 AM EST Medication Management [facility] MEDICINE [address] [place] [phone] Jame Carpenter PharmD [address] [place] [address] documented as of this encounter Goals Goal [...] Assessment Noted Time PHQ-9 Depression Total Score: 5 03/01/20 24 3:18 PM EDT documented as of this encounter Care Teams Personnel Security Specialist Relationship Specialty Start Date End Date Mamie Bolanos MD [address] [place] [address] PCP - General Family Medicine 09/23/15 Jame Carpenter PharmD [address] [place] [address]26 Pharmacist Internal Medicine 07/21/23 documented as of this encounter
--- OUTSIDE RECORDS SUMMARY | 2024-10-10 18:21 | XMS_ITS | Encounter Summary ---
Author Organization [employer] Address [address] [facility] 7t [place] [address] Care Team Providers Care Insulation Engineman Name Role Phone Mamie Bolanos MD Primary Care Provider [phone] Jame Carpenter PharmD Unavailable Encounter Details Date Type Department Care Team (Late st Contact Info) Description 08/10/2023 Orders Only [facility] MEDICINE [address] [place], [place] [phone] Mamie Bolanos MD [address] [place], [place] [phone] Social History Tobacco Use Types Packs/Day Years Used Date Smoking Tobacco: Never Passive Smoke Exposure: Never Smokeless Tobacco: Never Depression Answer Date Recorded Patient Health Questionnaire-9 Score 14 01/12/2023 Housing Stability Answer Date Recorded What is your housing situation today? I have jeansage cerna 06/01/[address] you [...] Description 10/12/2024 9:00 AM EST Medication Management [facility] MEDICINE [address] [place] [address] Jame Carpenter PharmD [address] [place] [address] documented as of this encounter Goals Goal [...] documented as of this encounter Care Teams Insulation Engineman Relationship Specialty Start Date End Date Mamie Bolanos MD [address] [place] [address]794 PCP - General Family Medicine 09/23/15 Jame Carpenter PharmD [address] [place] [address] Pharmacist Internal Medicine 07/21/23 documented as of this encounter
--- OUTSIDE RECORDS SUMMARY | 2024-10-10 18:21 | XMS_ITS | Encounter Summary ---
Author Organization [employer] Address [address] [facility] 7 [place] [address] Care Team Providers Care Infantry Weapons Crewmember Name Role Phone Mamie Bolanos MD Primary Care Provider [phone] Jame Carpenter PharmD Unavailable [phone] Reason for Referral * Medications - Closed Specialty Diagnoses / Procedures Referred By Contac t Referred To Contact Mamie Bolanos MD [address] [place] [address] Phone: tel: fax: Referral ID Status Reason Start Date Expiration Date Visits Re quested Visits Authorized [id number] Closed 1 1 Encounter Details Date Type Department Care Team (Late st Contact Info) Description 08/24/2023 Orders Only [facility] MEDICINE [address] [place] [address] [phone] Mamie Bolanos MD [address] [place], [place] [phone] Social History Tobacco Use Types Packs/Day Years [...] Description 10/12/2024 9:00 AM EST Medication Management [facility] MEDICINE [address] [place] [address] Jame Carpenter PharmD [address] [place] [address] documented as of this encounter Goals Goal Patient Goal Type Associated Problems Recent Progress Patient-Stated? Author Blood Pressure < 140/90 Blood Pressure 123/69(2024 2:15 PM EST) No Jame Carpenter PharmJamia Hemoglobin A1c < 7 Result Component 8.8( 2:17 PM EST) No Jame Carpenter PharmJamia documented as of this encounter Visit Diagnoses Not on filedocumented in this encounter Additional Health Concerns Assessment Noted Time PHQ-9 Depression Total Score: 14 023 9:33 AM EDT documented as of this encounter Care Teams Infantry Weapons Crewmember Relationship Specialty Start Date End Date Mamie Bolanos MD [address] [place] [address] PCP - General Family Medicine 09/23/15 Jame Carpenter PharmD [address] [place] [phone] Pharmacist Internal Medicine 07/21/23 documented as of this encounter
--- OUTSIDE RECORDS SUMMARY | 2024-10-10 18:22 | XMS_ITS | Encounter Summary ---
Author Organization [employer] Address [address] [facility] 7t [place] [address] Care Team Providers Care Senior Sql Developer Name Role Phone Mamie Bolanos MD Primary Care Provider [phone] Jame Carpenter PharmD Unavailable [phone] Encounter Details Date Type Department Care Team (Late st Contact Info) Description 02/07/2024 Orders Only [facility] MEDICINE [address] [place], [place] [phone] Mamie Bolanos MD [address] [place], [place] [phone] Social History Tobacco Use Types Packs/Day Years [...] Description 10/12/2024 9:00 AM EST Medication Management [facility] MEDICINE [address] [place] [address] Jmae Carpenter PharmD [address] [place] [address] documented as of this encounter Goals Goal [...] documented as of this encounter Care Teams Senior Sql Developer Relationship Specialty Start Date End Date Mamie Bolanos MD [address] [place] [address] PCP - General Family Medicine 09/23/15 Jame Carpenter PharmD [address] [place] [address]673 Pharmacist Internal Medicine 07/21/23 documented as of this encounter
--- OUTSIDE RECORDS SUMMARY | 2024-10-10 18:22 | XMS_ITS | Encounter Summary ---
Author Organization [employer] Address [address] [place] [address] 7 [place] [address] Care Team Providers Care Real Estate Underwriter Name Role Phone Mamie Bolanos MD Primary Care Provider [phone] Jame Carpenter PharmD Unavailable [phone] Reason for Referral * Consultation (Routine) - Closed Specialty Diagnoses / Procedures Referred By Contac t Referred To Contact Physical Therapy Diagnoses Bilateral leg pain Mamie Bolanos MD [address] [place] [address] Phone: tel: fax: [facility] [address] [place] [address] Phone: tel: fax: Referral ID Status Reason Start Date Expiration Date V isits Requested Visits Authorized [id number] Closed Specialty Services Required 03/30/2024 03/30/2025 1 1 Encounter Details Date Type Department Care Team (Late st Contact Info) Description 03/30/2024 Orders Only [facility] MEDICINE [address] [place], [place] [phone] Mamie Bolanos MD [address] [place], [place] [phone] Bilateral leg pain (Primary Dx) Social History Tobacco Use Types Packs/Day Years [...] Description 10/12/2024 9:00 AM EST Medication Management [facility] MEDICINE [address] [place] [address] Jame Carpenter PharmD [address] [place] [address] documented as of this encounter Goals Goal Patient Goal Type Associated Problems Recent Progress Patient-Stated? Author Blood Pressure < 140/90 Blood Pressure 123/69(2024 2:15 PM EST) No Jame Carpenter PharmD Hemoglobin A1c < 7 Result Component 8.8( 5 2:17 PM EST) No Jame Carpenter PharmD documented as of this encounter Procedures Procedure Name Priority Date/Time Associated Diagnosis Comments AMB REFERRAL TO PHYSICAL THERAPY Routine 04/19/20 24 Bilateral leg pain documented in this encounter Results * Referral to Physical Therapy (04/19/2024) Mamie Bolanos MD OUTPATIENT REFERRAL ORDERABLES F inal Result documented in this encounter Visit Diagnoses Diagnosis Bilateral leg pain- Primary Pain in soft tissues of limb documented in this encounter Additional Health Concerns Assessment Noted Time PHQ-9 Depression Total Score: 5 03/01/20 24 3:18 PM EDT documented as of this encounter Care Teams Real Estate Underwriter Relationship Specialty Start Date End Date Mamie Bolanos MD [address] [place] [address] PCP - General Family Medicine 09/23/15 Jame Carpenter PharmD [address] [place] [address]751 Pharmacist Internal Medicine 07/21/23 documented as of this encounter
--- OUTSIDE RECORDS SUMMARY | 2024-10-10 18:22 | XMS_ITS | Encounter Summary ---
Author Organization [employer] Address [address] [facility] 7t [place] [address] Care Team Providers Care Surveillance Agent Name Role Phone Mamie Bolanos MD Primary Care Provider [phone] Jame Carpenter PharmD Unavailable [phone] Reason for Visit * Reason Comments Care Coordination CHW outreach for SDO H food needs-referral completed Encounter Details Date Type Department Care Team (Latest Contact Info) Description 09/22/2024 Patient Outreach [facility] MEDICINE [address] [place], [place] [phone] Mamie Bolanos MD [address] [place], [place] [phone] Care Coordination (CHW outreach for SDOH food needs-referral completed /) Social History Tobacco Use Types Packs/Day Years Used Date Smoking Tobacco: Never Passive Smoke Exposure: Never Smokeless Tobacco: Never Alcohol Answer Date Recorded Frequency of Alcohol Consumption Not on file 03/01/2024 Average Number of Drinks Not on file 024 Frequency of Binge Drinking Not on file 02/13 Score 0 03/01/2024 Depression Answer Date Recorded Patient Health Questionnaire-9 Score 8 05/15/2024 Patient Health Questionnaire-9 Score 8 05/15/2024 Last PHQ-9: Questionnaire Data Not on file 0 05/15/2024 Housing Stability Answer Date Recorded What is your housing situation today? I have jean cerna 06/01/[address] you li ve. Do you have problems with any of the following? None of the above 06/01/2023 Food Insecurity Answer Date Recorded Within the past 12 months, y ou worried that your food would run out before you got money to buy more: Often true 09/22/2024 Within the past 12 months,th e food you bought just didn't last and you didn't have enough money to get more: Often true 02/2025 Transportation Answer Date Recorded In the past [...] Date Recorded Patient Health Questionnaire-2 Score 2 05/15/2024 Internet Access Answer Date Recorded Internet Access Q1 Yes 09/22/2024 Internet Access Q2 Not on file 09/22/2024 Sex and Gender Information Value Date Recorded Sex Assigned at Male 06/15/2022 10:16 AM EDT Legal Sex Male 10:16 AM EDT Gender Identity Male 06/15/2022 10:16 AM EDT Sexual Orientation Choose not to disclose 2021 10:16 AM EDT documented as of this encounter Progress Notes * Jessee Bueno - 09/22/2024 10:31 AM EST CHW Jessee Bueno, placed outbound call to patient for assistance with SDOH as a referral was received by the provider. Patient's name and were confirmed. Patient screened positive for the following SDOH food insecurities. CHW referred patient to the HIP program and [employer] pantries in the local area. Patient agree to follow up with plan. Patient educated on extended clinic hours on Mondays thro wednesdays, and Walk-In Urgent Care Located in [facility]. Patient provided with after-hours line for [facility], , which offer night time triage service and option to transfer to medical transcription editor provider if needed. documented in this encounter Plan of Treatment Upcoming Encounters Date Type Department Care Team ([facility] st Contact Info) Description 10/12/2024 9:00 AM EST Medication Management [facility] MEDICINE [address] [place] [address] Jame Carpenter, PharmD [address] [place] [address] documented as of this encounter Goals Goal [...] Assessment Noted Time PHQ-9 Depression Total Score: 8 05/15/20 24 1:14 PM EDT documented as of this encounter Care Teams Surveillance Agent Relationship Specialty Start Date End Date Mamie Bolanos MD [address] [place] [address] PCP - General Family Medicine 09/23/15 Jame Carpenter PharmD [address] [place] [address]76 Pharmacist Internal Medicine 07/21/23 documented as of this encounter
--- OUTSIDE RECORDS SUMMARY | 2024-10-10 18:22 | XMS_ITS | Clinical Summary ---
Author Organization [facility] Address [address] [place] [address] Phone Care Team Providers Care Lumber Straightened Name Role Phone Physician, No Pcp Primary Care Provider Unavaila ble Allergies No known active allergies Encounters Date Type Department Care Team Description 08/16/2024 10:00 AM EST - 08/16/2024 12:35 PM EST Emergency [facility] Emergency [address] [place] [address] Discharge Disposition: Left Against Medical Advice from Last 3 Months Medical History Medical History Date Comments Diabetes mellitus type 2, co ntrolled, with complications (CMS/HCC) DX:Diabetes mellitus type 2, controlled, with complications (HCC) Essential hypertension DX:Essent ial hypertension Esophageal reflux DX:Esophageal reflux Hyperlipidemia DX:Hyperlipidemi a Depressive disorder DX:Depressiv e disorder Anxiety state DX:Anxiety state Social History Tobacco Use Types Packs/Day Years Used Date Smoking Tobacco: Never Smokeless Tobacco: Never Alcohol Use Standard Drinks/Week Comments Yes 0 (1 standard drink = 0.6 oz pur e alcohol) Sex and Gender Information Value Date Recorded Sex Assigned at Male 08/16/2024 12:41 PM EST Legal Sex Male 6:16 PM EST Gender Identity Male 08/16/2024 12:41 PM EST Sexual Orientation Straight 08/16/2024 12 :41 PM EST Obstetrics History Last Filed Vital Signs Vital Sign Reading Time Taken Comments Blood Pressure 152/81 08/16/2024 10:05 AM EST Pulse 81 08/16/2024 10:05 AM EST Temperature 36.4 ??C (97.5 ??F) 08/16/2024 10:[address] Respiratory Rate 18 08/16/2024 10:05 AM EST Oxygen Saturation 99% 08/16/2024 10:05 AM EST Inhaled Oxygen Concentration - - Weight 77.1 kg (170 lb) 08/16/2024 10:05 AM EST Height 175.3 cm (5' 9 ) 08/16/2024 10:05 AM EST Body Mass Index 25.1 08/16/2024 10:05 AM EST Plan of Treatment Health Maintenance Due Date Last Done Comments Diabetes: Annual GFR (Glomerular Filtration Rate) 1959 Diabetes: Annual Foot Exam 1969 Diabetes: Annual Retina Eye Exam 1969 Cholesterol Screening (Lipid Panel) 07/18/2022 Colorectal Cancer Screening: Colonoscopy 07/18/2022 Hepatitis C Screening 07/18/2022 Medicare Annual Wellness Visit 07/18/2022 Social Influencers of Health Screening 07/18/2022 Falls Risk Assessment 2024 Diabetes: Annual Urine Albumin-Creatinine Ratio (uACR) 08/16/2024 Hypertension/CHF/CAD Annual BMP Blood Test 08/16/2024 Diabetes: Blood Sugar Control Test (HGBA1C) 11/12/2024 05/15/2024 Depression Screening 05/15/2025 05/15/2024 DTaP,Tdap,and Td Vaccines (7 - Td or Tdap) 05/29/2031 05/29/2021, 06/28/2017, 06/27/2017, Additional history exists RSV Immunization Patients 60+ Years Old (1 - 1-dose 75+ series) 2034 Hepatitis B Vaccines Completed 02/11/2017, 05/23/2015, 09/13/2013 Zoster Vaccines Completed 06/12/2019, 04/04/2019 Pneumococcal Vaccine: 50+ Years Completed 03/01/2024, 05/15/2008, 07/18/2007, Additional history exists Pneumococcal Vaccine: Pediatrics (0 to 5 Years) and At-Risk Patients (6 to 64 Years) Aged Out 03/01/2024, 05/15/2008, 07/18/2007, Additional history exists No longer eligible based on patient's age to complete this topic COVID-19 Vaccine Completed 05/15/2024, 01/2022, 11/28/2020, Additional history exists Influenza Vaccine Completed 05/15/2024, , 07/21/2021, Additional history exists HIB Vaccines Aged Out No longer eligi ble based on patient's age to complete this topic HPV Vaccines Aged Out No longer eligi ble based on patient's age to complete this topic Hepatitis A Vaccines Aged Out No long er eligible based on patient's age to complete this topic IPV Vaccines Aged Out No longer eligi ble based on patient's age to complete this topic MMR Vaccines Aged Out No longer eligi ble based on patient's age to complete this topic Meningococcal ACWY Vaccine Aged Out N o longer eligible based on patient's age to complete this topic Meningococcal B Vacine Aged Out No lo nger eligible based on patient's age to complete this topic RSV Immunization Patients Under 20 months Aged Out No longer eligible based on patient's age to complete this topic Varicella Vaccines Aged Out No longer eligible based on patient's age to complete this topic Procedures Procedure Name Priority Date/Time Associated Diagnosis Comments XR FOOT 3+ VIEWS RIGHT STAT 08/16/2024 10:16 AM EST from Last 3 Months Results * XR Foot 3+ Views Right (08/16/2024 10:16 AM EST) Anatomical Region Laterality Modality Lower Extremities, Foot Right Radiogra psychiatric Imaging 08/16/2024 11:0 3 AM EST Impressions 08/16/2024 11:04 AM EST Unremarkable right foot exam. Especially there is no soft tissue abnormality along the plantar aspect of distal foot where a ??marker has been placed. -------- FINAL REPORT -------- Dictated By: Jorje Young Dictated Date: 08/16/2024 11:03 ET Assigned Physician: Jorje Young Reviewed and Electronically Signed By: Jorje Young Signed Date: 08/16/2024 11:04 ET Workstation ID: [id number] Transcribed By: Self Edit Transcribed Date: 08/16/2024 11:03 ET Narrative 08/16/2024 11:04 AM EST EXAMINATION: Right foot 3 views. CLINICAL INDICATION: Stepped on nail. COMPARISON: None. FINDINGS: There is no bony or joint abnormality seen. There is no radiopaque foreign body soft tissue gas or laceration seen. Procedure Note Jorje Young MD - 08/16/2024 EXAMINATION: Right foot 3 views. CLINICAL INDICATION: Stepped on nail. COMPARISON: None. FINDINGS: There is no bony or joint abnormality seen. There is noradiopaque foreign body soft tissue gas or laceration seen. IMPRESSION: Unremarkable right foot exam. Especially there is no soft tissueabnormality along the plantar aspect of distal foot where a marker hasbeen placed. -------- FINAL REPORT -------- Dictated By: Jorje Young Dictated Date: 08/16/2024 11:03 ET Assigned Physician: Jorje Young Reviewed and Electronically Signed By: Jorje Young Signed Date: 08/16/2024 11:04 ET Workstation ID: [id number] Transcribed By: Self Edit Transcribed Date: 08/16/2024 11:03 ET Raúl Benjamin DO IMG XR PROCEDURES Final Res ult from Last 3 Months Insurance MEDICARE [facility] [employer] Care Teams Lumber Straightened Relationship Specialty Start Date End Date Physician, No Pcp PCP - General 08/16/24
--- OUTSIDE RECORDS SUMMARY | 2024-10-10 18:22 | XMS_ITS ---
Author Organization [facility] Address [address] [place] [address] Care Team Providers Care Otr Owner Operator Name Role Phone Cici ALVES, Mamie Primary Care Provider Cordell Martinez [phone] ALLERGIES No Known Allergies REASON FOR VISIT Patient presents today for a colon screening MEDICATIONS Medication SIG (Take, Route, Frequency, Duration) Notes Start Date End Date Status Trulicity 0.75 MG/0.5ML as directed Subcutaneous Active Aspirin Adult Low Dose 81 MG 1 tablet Orally Once a day for 30 day(s) Active Omeprazole 40 MG 1 capsule Orally Onc e a day Active Sertraline HCl 100 MG 2tablet Orally DIRECTED Active Jardiance 25 MG 1 tablet Orally Once a day for 30 day(s) Active Atorvastatin Calcium 80 MG 1 tablet Orally Once a day Active Lisinopril 40 MG 1 tablet Orally Once a day Active Metoprolol Succinate ER 100 MG 1 tablet Orally Once a day A ctive metFORMIN HCl 1000 MG 1 tablet with meal s Orally Twice a day Active Fenofibrate 160 MG 1 tablet with food O rally Once a day for 30 day(s) Active PROBLEMS Problem Type ICD Code Onset Dates Problem Status W/U Status Risk SNOMED Code Notes Problem Encounter for other preprocedural examination (Z01.818) Active confirmed Pre-procedure evaluation check (183315921) VITAL SIGNS Blood pressure systolic 00 mm Hg 02/24/20 24 Blood pressure diastolic 00 mm Hg 024 Height 69 in 02/24/2024 Weight 169 lbs 02/24/2024 BMI 24.95 kg/m2 02/24/2024 Encounters Encounter Location Date Provider Diagnosis [facility] [address] [place] [address] 02/24/2024 Cordell Loza Encounter for screen ing for malignant neoplasm of colon Z12.11 ; Encounter for other preprocedural examination Z01.818 and History of adenomatous polyp of colon Z86.010 ASSESSMENTS Encounter Date Diagnosis Assessment Notes Treatment Notes Treatment Clinical Notes 02/24/2024 Encounter for screening for malignant neoplasm of colon (ICD-10 - Z12.11) DO NOT TAKE THE JARDIANCE FOR 3 DAYS BEFORE THE COLONOSCOPY DO NOT TAKE THE METFORMIN THE NIGHT BEFORE NOR ON THE MORNING OF THE COLONOSOCPY DO NOT USE THE TRULICITY FOR ONE WEEK BEFORE THE COLONOSCOPY STOP ASPIRIN FOR 1 WEEK BEFORE THE COLONOSCOPY. 02/24/2024 Encounter for other preprocedural examination (ICD-10 - Z01.818) 02/24/2024 History of adenomatous polyp of colon (ICD-10 - Z86.010) PLAN OF TREATMENT Treatment Notes Assessment Notes Encounter for screening for malignant neoplasm of colon DO NOT TAKE THE JARDIANCE FOR 3 DAYS BEFORE THE COLONOSCOPY DO NOT TAKE THE METFORMIN THE NIGHT BEFORE NOR ON THE MORNING OF THE COLONOSOCPY DO NOT USE THE TRULICITY FOR ONE WEEK BEFORE THE COLONOSCOPY STOP ASPIRIN FOR 1 WEEK BEFORE THE COLONOSCOPY. Future Test Test Name Order Date COLONOSCOPY 02/24/2024 Next Appt Details Follow Up: prn, Reason: Progress Notes * Examination Category Sub-Category Detail Notes General Examination GENERAL APPEARANCE: pleasant , well nourished, well developed, in no acute distress HEAD: EYES: sclera non-icteric EARS: NOSE: THROAT: NECK/THYROID: no cervical lymphade nopathy, neck supple HEART: S1, S2 normal CHEST: LUNGS: clear to auscultatio n bilaterally ABDOMEN: normal bowel sounds, no guarding or rigidity, no guarding or rigidity, no masses palpable, soft, nontender, nondistended NEUROLOGIC: alert and oriented SKIN: nonjaundiced, no spi janay angiomata EXTREMITIES: no edema PERIPHERAL PULSES: BACK: BREASTS: MUSCULOSKELETAL: MALE GENITOURINARY: LYMPH NODES: RECTAL EXAM: FEMALE GENITOURINARY: ORAL CAVITY: mucosa moist
--- OUTSIDE RECORDS SUMMARY | 2024-10-10 18:22 | XMS_ITS ---
Author Organization [facility] Address [address] [place] [address] Care Team Providers Care Cardiovascular Surgical Tech Name Role Phone Cici ALVES, Mamie Primary Care Provider Cordell Martinez [phone] REASON FOR VISIT bowel prep MEDICATIONS Medication SIG (Take, Route, Frequency, Duration) Notes Start Date End Date Status MiraLax (colon prep) 17 GM/SCOOP 1 238Gm bottle mixed with Gatorade or Crystal Light Orally begin at 5:00 p.m. the day before the procedure for 1 day 02/26/2024 Active Dulcolax (colon prep) 5 MG take at 3:00 p.m and 7:00p.m. Orally two tablets twice a day for one day for 1 day 02/26/2024 Active Encounters Encounter Location Date Provider Diagnosis [facility] [address] [place] [address] 02/24/2024 Cordell Loza PLAN OF TREATMENT Medication Medication Name Sig Start Date Stop Date Notes MiraLax (colon prep) 17 GM/SCOOP 1 238Gm bottle mixed with Gatorade or Crystal Light Orally begin at 5:00 p.m. the day before the procedure for 1 day 02/26/2024 Dulcolax (colon prep) 5 MG take at 3:00 p.m and 7:00p.m. Orally two tablets twice a day for one day for 1 day 02/26/2024
--- OUTSIDE RECORDS SUMMARY | 2024-10-10 18:22 | XMS_ITS | Patient Health Record ---
Author Organization [facility] Address [address] [place] [address] Care Team Providers Care Manager Forensic Name Role Phone Cici ALVES, Mamie Primary Care Provider Cordell Martinez [phone] ALLERGIES No Known Allergies RESULTS Component Value Reference Range Notes Glucose, Whole Blood Reviewed date:06/26/2024 11:52:21 PM Interpretation: Performing Lab:[facility], [address] [place] [id number] Notes/Report: Glucose, Whole Blood 178 60-115 mg/dL METER # : [id number] REASON FOR REFERRAL No Information MEDICATIONS Medication SIG (Take, Route, Frequency, Duration) Notes Start Date End Date Status Aspirin Adult Low Dose 81 MG 1 tablet Orally Once a day for 30 day(s) Active Omeprazole 40 MG 1 capsule Orally Onc e a day Active MiraLax (colon prep) 17 GM/SCOOP 1 238Gm bottle mixed with Gatorade or Crystal Light Orally begin at 5:00 p.m. the day before the procedure for 1 day 02/26/2024 Active Dulcolax (colon prep) 5 MG take at 3:00 p.m and 7:00p.m. Orally two tablets twice a day for one day for 1 day 02/26/2024 Active Atorvastatin Calcium 80 MG 1 tablet Orally Once a day Active Lisinopril 40 MG 1 tablet Orally Once a day Active Metoprolol Succinate ER 100 MG 1 tablet Orally Once a day A ctive Sertraline HCl 100 MG 2tablet Orally DIRECTED Active Jardiance 25 MG 1 tablet Orally Once a day for 30 day(s) Active metFORMIN HCl 1000 MG 1 tablet with meal s Orally Twice a day Active Trulicity 0.75 MG/0.5ML as directed Subcutaneous Active Fenofibrate 160 MG 1 tablet with food O rally Once a day for 30 day(s) Active IMMUNIZATIONS Vaccine Route Administration Date Status Comme nts Influenza Unknown 04/16/2015 Administered Influenza Unknown 04/16/2018 Administered SOCIAL HISTORY Sex Assigned At : Social History Observation Description Sex Assigned At Unknown PROBLEMS Problem Type ICD Code Onset Dates Problem Status W/U Status Risk SNOMED Code Notes Problem Epigastric abdominal pain (R10.13) Active confirmed 59768550 Problem Encounter for screening for malignant neoplasm of colon (Z12.11) Active confirmed 341587395 Problem History of adenomatous polyp of colon (Z86.010) Active confirmed 406805715 Problem Encounter for other preprocedural examination (Z01.818) Active confirmed Pre-procedure evaluation check (151703239) Problem Diverticulosis of large intestine without perforation or abscess without bleeding (K57.30) Active confirmed Diverticul ar disease of colon (832365067) Problem Encounter for screening for malignant neoplasm of rectum (Z12.12) Active confirmed Screening for malignant neoplasm of rectum (860881767) Problem Gastroesophageal reflux disease without esophagitis (K21.9) Active confirmed 724295208 VITAL SIGNS Blood pressure diastolic 00 mm Hg 02/24/2024 Height 69 in 02/24/2024 Blood pressure systolic 00 mm Hg 02/24/2024 Weight 169 lbs 02/24/2024 BMI 24.95 kg/m2 02/24/2024 Encounters Encounter Location Date Provider Diagnosis [facility] Outpatient [address] [place], [place] [phone] 06/26/2024 Cordell Loza Colon cancer screeni ng Z12.11 ; Personal history of colonic polyps Z86.0100 ; Diverticulosis of large intestine without perforation or abscess without bleeding K57.30 and Other hemorrhoids K64.8 [facility] [address] [place] [address] 02/24/2024 Cordell Loza Encounter for screen ing for malignant neoplasm of colon Z12.11 ; Encounter for other preprocedural examination Z01.818 and History of adenomatous polyp of colon Z86.010 [facility] [address] [place] [address] 02/24/2024 Cordell Loza ASSESSMENTS Encounter Date Diagnosis Assessment Notes Treatment Notes Treatment Clinical Notes 06/26/2024 Colon cancer screening (ICD-10 - Z12.11) 06/26/2024 Personal history of colonic polyps (ICD-10 - Z86.0100) 02/24/2024 Encounter for screening for malignant neoplasm [...] for other preprocedural examination (ICD-10 - Z01.818) 06/26/2024 Diverticulosis of large intestine without perforation or abscess without bleeding (ICD-10 - K57.30) 02/24/2024 History of adenomatous polyp of colon (ICD-10 - Z86.010) 06/26/2024 Other hemorrhoids (ICD-10 - K64.8) PLAN OF TREATMENT Future Test Test Name Order Date COLONOSCOPY 03/05/2016 COLONOSCOPY 02/24/2024 Insurance Providers Payer Name Payer Address Payer Phone Subscriber Number Group Number Insured Name Patient Relationship to Insured Coverage Start Date Coverage End Date [facility] [address] Attn Claims [place] [id number] BLAS YEN Self - patient is the insured MEDICAL (GENERAL) HISTORY Medical History History ICD Code Colonoscopy 12-12-2009-- 1 tu bular adenoma removed, mild diverticulosis, small internal hemorrhoids; colonoscopy in 05/2016 with only a hyperplastic polyp GERD--EGD in 2009 with a moderate-sized HH--no Narayan's, no esophagitis Diabetes Hypertension Hyperlipidemia Depression Glaucoma Denies [place],CVA,Lung disease,renal disease Anxiety Surgical History Surgery Date(Month/Year) Right knee
--- OUTSIDE RECORDS SUMMARY | 2024-10-10 18:22 | XMS_ITS | Encounter Summary ---
Author Organization [facility] [facility] Address [address] [facility] [address] [place] [address] Care Team Providers Care Battery Container Tester Aluminum Name Role Phone Mamie Bolanos MD Primary Care Provider [phone] Jame Carpenter PharmD Unavailable [phone] Reason for Referral * Consultation (Routine) - Pending Review Specialty Diagnoses / Procedures Referred By Contac t Referred To Contact Pharmacy Diagnoses Type 2 diabetes mellitus with hyperglycemia, without long-term current use of insulin (CMS/HCC) Essential hypertension Mamie Bolanos MD [address] [place] [address] Phone: tel: fax: Referral ID Status Reason Start Date Expiration Date Visits Requested Visits Authorized [id number] Pending Review Consult and Treat 4 06/27/2025 6 6 Encounter Details Date Type Department Care Team (Late st Contact Info) Description 06/27/[address] [facility] [address] [place] [phone] Mamie Bolanos MD [address] [place] [address] Type 2 diabetes mellitus with hyperglycemia, without long-term current use of insulin (CMS/HCC) (Primary Dx); Essential hypertension Social History Tobacco Use Types Packs/Day Years [...] Recorded Patient Health Questionnaire-2 Score 2 05/15/2024 Sex and Gender Information Value Date Recorded [...] Description 10/12/2024 9:00 AM EST Medication Management [facility] [address] [place] [address] Jame Carpenter, PharmD [address] [place] [address] Scheduled Referrals Name Type Priority Associated Diagnoses Orde r Schedule Referral to Pharmacy CDTM Outpatient Referral Routine Type 2 diabetes mellitus with hyperglycemia, without long-term current use of insulin ([facility]) Essential hypertension Ordered: 06/27/2024 documented as of this encounter Goals Goal Patient Goal Type Associated Problems Recent Progress Patient-Stated? Author Blood Pressure < 140/90 Blood Pressure 123/69(2024 2:15 PM EST) No Jame Carpenter PharmD Hemoglobin A1c < 7 Result Component 8.8( 2:17 PM EST) No Jame Carpenter PharmD documented as of this encounter Visit Diagnoses Diagnosis Type 2 diabetes mellitus with hyperglycemia, without long-term current use of insulin ([facility])- Primary Essential hypertension Unspecified essential hypertension documented in this encounter Additional Health Concerns Assessment Noted Time PHQ-9 Depression Total Score: 8 05/15/20 24 1:14 PM EDT documented as of this encounter Care Teams Battery Container Tester Aluminum Relationship Specialty Start Date End Date Mamie Bolanos MD [address] [place] [address] PCP - General Family Medicine 09/23/15 Jame Carpenter PharmD [address] [place] [phone] Pharmacist Internal Medicine 07/21/23 documented as of this encounter
--- OUTSIDE RECORDS SUMMARY | 2024-10-10 18:22 | XMS_ITS | Encounter Summary ---
Author Organization [facility] [employer] [facility] Address [address] [facility] [address] [place] [address] Care Team Providers Care Carpet Installer Helper Name Role Phone Mamie Bolanos MD Primary Care Provider [phone] Jame Carpenter PharmD Unavailable [phone] Reason for Visit * Reason Onset Date Comments Chart Prep 10/04/2024 Encounter Details Date Type Department Care Team ([facility] st Contact Info) Description 10/04/2024 Telephone [facility] [address] [place], [place] [phone] Mamie Bolanos MD [address] [place], [place] [phone] Chart Prep Social History Tobacco Use Types Packs/Day Years [...] encounter Miscellaneous Notes * Telephone Encounter - Jannette Reese [place] - 10/04/2024 11:10 AM EST Chart Prep Labs: done Images: not applicable Vaccines due: Updated Referrals: Physical Therapy Pending appointment on n/a Screenings: Eye Exam Overdue care gaps: A1C, Glucose, and Sbirt documented in this encounter Plan of Treatment Upcoming Encounters Date Type Department Care Team (Late st Contact Info) Description 10/12/2024 9:00 AM EST Medication Management [facility] [address] [place] [address] Jame Carpenter PharmD [address] [place] [address] documented as of this encounter Goals Goal Patient Goal Type Associated Problems Recent Progress Patient-Stated? Author Blood Pressure < 140/90 Blood Pressure 123/69(2024 2:15 PM EST) No Jame Carpenter, Mendoza Hemoglobin A1c < 7 Result Component 8.8( 2:17 PM EST) No Carpenter, Jame, PharmD documented as of this encounter Visit Diagnoses Not on filedocumented in this encounter Additional Health Concerns Assessment Noted Time PHQ-9 Depression Total Score: 8 05/15/20 24 1:14 PM EDT documented as of this encounter Care Teams Carpet Installer Helper Relationship Specialty Start Date End Date Mamie Bolanos MD [address] [place] [address] PCP - General Family Medicine 09/23/15 Jame Carpenter, NhungD [address] [place] [address] Pharmacist Internal Medicine 07/21/23 documented as of this encounter
--- OUTSIDE RECORDS SUMMARY | 2024-10-10 18:22 | XMS_ITS | Encounter Summary ---
Author Organization [employer] Address [address] [facility] [address] [place] [address] Care Team Providers Care Sales Product Manager Name Role Phone Mamie Bolanos MD Primary Care Provider [phone] Jame Carpenter PharmD Unavailable [phone] Reason for Referral * Consultation (Routine) - Closed Specialty Diagnoses / Procedures Referred By Contac t Referred To Contact Physical Therapy Diagnoses Cervical paraspinal muscle spasm Emmy Call MD [address] [place] [address] Phone: tel: fax: [facility] [address] [place] [phone] Phone: tel: fax: Referral ID Status Reason Start Date Expiration Date V isits Requested Visits Authorized [id number] Closed Specialty Services Required 09/25/2024 09/25/2025 1 1 Reason for Visit * Reason Comments Headache Encounter Details Date Type Department Care Team (Late st Contact Info) Description 09/25/2024 2:40 PM EST Office Visit [facility] [address] [place] [address] [phone] Emmy Call MD [address] [place], [place] [phone] Cervical paraspinal muscle spasm (Primary Dx) Social History Tobacco Use Types Packs/Day Years Used Date Smoking Tobacco: Never Passive Smoke Exposure: Never Smokeless Tobacco: Never Tobacco Cessation:Counseling Given: Not Answered Alcohol Answer Date Recorded Frequency of Alcohol [...] AM EDT documented as of this encounter Last Filed Vital Signs Vital Sign Reading Time Taken Comments Blood Pressure 126/75 09/25/2024 2:10 PM EST Pulse 70 09/25/2024 2:10 PM EST Temperature 36.3 ??C (97.4 ??F) 09/25/2024 2:10 PM ES T Respiratory Rate 20 09/25/2024 2:10 PM EST Oxygen Saturation - - Inhaled Oxygen Concentration - - Weight 78.5 kg (173 lb) 09/25/2024 2:10 PM EST Height 174 cm (5' 8.5 ) 09/25/2024 2:10 PM EST Body Mass Index 25.92 09/25/2024 2:10 PM EST documented in this encounter Progress Notes * Emmy Call MD - 09/25/2024 2:40 PM EST SUBJECTIVE: Ben Cardona is a 64 y.o. year old male who presents for [facility] . Denies recent illness, injury, or hospitalization. Acute Concerns: Patient complains of worsening of neck pain for the past 3 days that limits head movements. He has not had any recent trauma, fever, chills sore throat or cough. He has been having recurrent episodesof neck pain for the past 6 months, has history of head trauma more than 20 years ago. He does not have blurred vision, change in mental status. Social History Social History Narrative Not on file Patient Active Problem List Diagnosis Anxiety Chronic recurrent major depressive disorder (CMS/HCC) Type 2 diabetes mellitus (CMS/HCC) Diabetic polyneuropathy (CMS/HCC) Dyslipidemia Essential hypertension Gastroesophageal reflux disease without esophagitis Knee pain Left ventricular outflow tract obstruction Weight loss Tubular adenoma of colon Recurrent acute otitis media Bilateral leg pain Venous insufficiency Epigastric abdominal pain Left elbow pain Peripheral artery disease (CMS/HCC) Wart of hand Erectile dysfunction Cervical paraspinal muscle spasm Family History Problem Relation Name Age of Onset Diabetes type II Mother Heart attack Sister 62 Stroke Sister Hypertension Sister Diabetes type II Sister Asthma Sister Coronary artery disease Sister Diabetes type II Brother Review of Systems Constitutional: Negative for fever. HENT: Negative for congestion, ear pain, rhinorrhea and sore throat. Eyes: Negative for pain and discharge. Respiratory: Negative for cough and shortness of breath. Cardiovascular: Negative for chest pain. Gastrointestinal: Negative for abdominal pain, constipation, diarrhea and nausea. Endocrine: Negative for polydipsia. Genitourinary: Negative for dysuria and frequency. Musculoskeletal: Positive for neck pain. Negative for arthralgias and back pain. Neurological: Positive for headaches. Negative for dizziness and numbness. Psychiatric/Behavioral: Negative for agitation. OBJECTIVE: Vitals: 09/25/24 1410 BP: 126/75 Pulse: 70 Resp: 20 Temp: 97.4 ??F (36.3 ??C) Physical Exam Constitutional: Appearance: Normal appearance. HENT: Right Ear: Tympanic membrane and ear canal normal. Left Ear: Tympanic membrane and ear canal normal. Mouth/Throat: Mouth: Mucous membranes are moist. Pharynx: No oropharyngeal exudate or posterior oropharyngeal erythema. Eyes: Pupils: Pupils are equal, round, and reactive to light. Cardiovascular: Rate and Rhythm: Normal rate and regular rhythm. Heart sounds: No murmur heard. Pulmonary: Breath sounds: Normal breath sounds. No wheezing. Abdominal: General: Bowel sounds are normal. Palpations: Abdomen is soft. Tenderness: There is no abdominal tenderness. Musculoskeletal: Cervical back: Rigidity, spasms, torticollis and tenderness present. Decreased range of motion. Skin: General: Skin is warm. Neurological: General: No focal deficit present. Mental Status: He is alert and oriented to person, place, and time. Psychiatric: Mood and Affect: Mood normal. Problem List Items Addressed This Visit Cervical paraspinal muscle spasm - Primary Advised to put heat to affected area and do stretching exercises twice daily. I will refer to PT Toradol 30 mg IM today, continue meloxicam 15 mg daily x 1 week then as needed Can use Tylenol plus Flexeril nightly x 1 week then as needed Advised to come to acupuncture clinic. Relevant Medications ketorolac (Toradol) injection 30 mg (Completed) Other Relevant Orders Referral to Physical Therapy Follow Up: Current Outpatient Medications on File Prior to Visit Medication Sig Dispense Refill Alcohol Swabs (Alcohol Prep) 70 % pads USE 4 TO 5 TIMES PER DAY DIRECTED 100 each 11 Aspirin Adult Low Strength 81 MG EC tablet TAKE 1 TABLET BY MOUTH AT BEDTIME 90 tablet 3 atorvastatin (Lipitor) 80 MG tablet TAKE 1 TABLET BY MOUTH AT BEDTIME 90 tablet 3 Blood Pressure Monitor kit Use to measure blood pressure daily as directed 1 kit 0 ezetimibe (Zetia) 10 MG tablet Take 1 tablet (10 mg) by mouth Once per day. 90 tablet 3 fenofibrate (Triglide) 160 MG tablet TAKE 1 TABLET BY MOUTH EVERY MORNING 90 tablet 3 gabapentin (Neurontin) 300 MG capsule Take 1 capsule (300 mg) by mouth at bedtime. 90 capsule 3 glucose blood (FREESTYLE LITE) test strip TEST BLOOD SUGAR 4 TO 5 TIMES PER DAY DIRECTED 100 strip 11 hydrOXYzine pamoate (Vistaril) 25 MG capsule Take 1 capsule (25 mg) by mouth every 8 (eight) hours if needed for anxiety, allergies or itching. 60 capsule 3 Jardiance 25 MG TAKE 1 TABLET BY MOUTH EVERY MORNING 90 tablet 3 latanoprost (Xalatan) 0.005 % ophthalmic solution INSTILL 1 DROP IN EACH EYE AT BEDTIME 2.5 mL 5 lidocaine (Lidoderm) 5 % patch Apply 1 patch topically in the morning. Remove & discard patch within 12 hours or as directed by MD. 30 patch 11 lisinopril 40 MG tablet Take 1 tablet (40 mg) by mouth in the morning. 90 tablet 11 metFORMIN (Glucophage) 1000 MG tablet TAKE 1 TABLET BY MOUTH TWICE DAILY IN THE MORNING AND AT BEDTIME 180 tablet 3 metoprolol succinate XL (Toprol-XL) 100 MG 24 hr tablet TAKE 1 AND 1/2 TABLETS BY MOUTH IN THE MORNING 135 tablet 3 omeprazole (PriLOSEC) [address] capsule TAKE 1 CAPSULE BY MOUTH EVERY MORNING 90 capsule 0 semaglutide (Ozempic) 2 MG/1.5ML solution pen-injector Inject 1 mg under the skin 1 (one) time per week. 2 each 12 sertraline (Zoloft) 100 MG tablet TAKE 2 TABLETS BY MOUTH ONCE DAILY IN THE MORNING 60 tablet 11 tadalafil (Cialis) 10 MG tablet Take 1 tablet =30 minutes prior to anticipated sexual activity; do not take more than once daily 10 tablet 3 TRUEplus Lancets 33G misc TEST BLOOD SUGAR 4 - 5 TIMES DAILY 100 each 11 Trulicity 3 MG/0.5ML solution pen-injector INJECT ONE PEN (= 3MG) SUBCUTANEOUSLY ONCE A WEEK DIRECTED 2 mL 11 [DISCONTINUED] meloxicam (Mobic) 15 MG tablet Take 1 tablet by mouth twice daily as needed for pain. Take with food. 60 tablet 3 No current facility-administered medications on file prior to visit. documented in this encounter Miscellaneous Notes * Assessment & Plan Note - Emmy Call MD - 09/25/2024 2:45 PM EST Associated Problem(s): Cervical paraspinal muscle spasm Advised to put heat to affected area and do stretching exercises twice daily. I will refer to PT Toradol 30 mg IM today, continue meloxicam 15 mg daily x 1 week then as needed Can use Tylenol plus Flexeril nightly x 1 week then as needed Advised to come to acupuncture clinic. documented in this encounter Plan of Treatment Upcoming Encounters Date Type Department Care Team (Late st Contact Info) Description 10/12/2024 9:00 AM EST Medication Management [facility] [address] [place] [address] Jame Carpenter PharmD [address] [place], [place] [phone] Scheduled Referrals Name Type Priority Associated Diagnoses Orde r Schedule Referral to Physical Therapy Outpatient Referral Routine Cervical paraspinal muscle spasm Expected: 09/25/2024 (Approximate), Expires: 09/25/2025 documented as of this encounter Goals Goal Patient Goal Type Associated Problems Recent Progress Patient-Stated? Author Blood Pressure < 140/90 Blood Pressure 123/69(2024 2:15 PM EST) No Jame Carpenter PharmD Hemoglobin A1c < 7 Result Component 8.8( 2:17 PM EST) No Jame Carpenter PharmD documented as of this encounter Visit Diagnoses Diagnosis Cervical paraspinal muscle spasm- Primary Spasm of muscle documented in this encounter Administered Medications Inactive Administered Medications - up to 3 most recent administrations Medication Order MAR Action Action Date Dose Rate Site ketorolac (Toradol) injection 30 mg 30 mg, Intramuscular, Once, On Wed09/25/24 at 1445, For 1 doseIndications:Cervical paraspinal muscle spasm Given 09/25/2024 2:41 PM EST 30 mg Right Deltoid documented in this encounter Additional Health Concerns Assessment Noted Time PHQ-9 Depression Total Score: 8 05/15/20 24 1:14 PM EDT documented as of this encounter Care Teams Sales Product Manager Relationship Specialty Start Date End Date Mamie Bolanos MD [address] [place] [address] PCP - General Family Medicine 2/8/16 Jame Carpenter, PharmD [address] [place] [phone] Pharmacist Internal Medicine 07/21/23 documented as of this encounter
--- OUTSIDE RECORDS SUMMARY | 2024-10-10 18:22 | XMS_ITS | Encounter Summary ---
Author Organization [employer] Address [address] [facility] [address] [place] [address] Care Team Providers Care Goodwill Ambassador Name Role Phone Mamie Bolanos MD Primary Care Provider [phone] Jame Carpenter PharmD Unavailable [phone] Encounter Details Date Type Department Care Team (Late st Contact Info) Description 10/09/2024 2:30 PM EST Office Visit [facility] [address] [place], [place] [phone] Mamie Bolanos MD [address] [place], [place] [phone] Essential hypertension (Primary Dx); Type 2 diabetes mellitus with hyperglycemia, without long-term current use of insulin (CMS/HCC); Dyslipidemia; Bilateral leg pain; Chronic recurrent major depressive disorder (CMS/HCC); Anxiety; Cervical paraspinal muscle spasm; Chronic pain of both knees Social History Tobacco Use Types Packs/Day Years [...] Sign Reading Time Taken Comments Blood Pressure 123/69 10/09/2024 2:15 PM EST Pulse 79 10/09/2024 2:15 PM EST Temperature 36.3 ??C (97.3 ??F) 10/09/2024 2:15 PM ES T Respiratory Rate 21 10/09/2024 2:15 PM EST Oxygen Saturation 95% 10/09/2024 2:15 PM EST Inhaled Oxygen Concentration - - Weight 78.6 kg (173 lb 3.2 oz) 10/09/2024 2:15 P M EST Height 174.3 cm (5' 8.64 ) 10/09/2024 2:15 PM ES T Body Mass Index 25.85 10/09/2024 2:15 PM EST documented in this encounter Miscellaneous Notes * Assessment & Plan Note - Jason Espinal - 10/09/2024 3:01 PM ESTAssociated Problem(s): Knee pain - X-ray in February 2024 showed mild degenerative changes of bilateral knees. - continue judicious use of analgesic - Completed PT; referred to his orthopedist -Continue current pain medications * Assessment & Plan Note - Jason Espinal - 10/09/2024 2:59 PM ESTAssociated Problem(s): Cervical paraspinal muscle spasm Advised to put heat to affected area and do stretching exercises twice daily. Continue stretching exercise. Pt was referred to PT Given Toradol 30 mg IM on 09/25/24, continue meloxicam 15 mg PRN Continue Tylenol plus Flexeril PRN Advised to come to acupuncture clinic. Will refer to pt orthopedist * Assessment & Plan Note - Jason Espinal - 10/09/2024 2:32 PM ESTAssociated Problem(s): Dyslipidemia - with hypertriglyceridemia - Last lipid profile: 03/02/24, elevated LDL despite maximum dose of atorvastatin, Triglyceride has improved - Current medication: Atorvastatin 80 mg qhs; fenofibrate 160mg daily - Previously on [place]-3 due to hypertriglyceridemia - Add ezetimibe - Consider evaluation and treatment for familial hypercholesterolemia and consider PSCK9 inhibitor - Continue working on lifestyle modification. * Assessment & Plan Note - Jason Espinal - 10/09/2024 2:31 PM ESTAssociated Problem(s): Chronic recurrent major depressive disorder (CMS/HCC) - continue sertraline 100 mg daily - Pt no longer has behavioral health services; will refer - will obtain EKG at next visit * Assessment & Plan Note - Jason Espinal - 10/09/2024 2:31 PM ESTAssociated Problem(s): Type 2 diabetes mellitus (CMS/HCC) -HgbA1C 8.8% on 10/09/24, -Emphasized the importance of SMBG and medication adherence. -Continue working on lifestyle modification. -Continue Trulicity to 3.0 mg weekly, possible side effect, will monitor at this time -Continue Jardiance 25mg daily -Continue metformin 1000mg bid -Add basal insulin 10 units every morning Treatment Hx Discontinued glipizide in Sep 2015. Insulin discontinued in 2017 when his glycemic control improvedwith GLP-1 RA and SGLT-2 inhibor. Last eye exam: Jun 2023 Last foot exam: 03/01/24, decreased sensation / cold extremity, diabetic neuropathy Last microalbumin test: 03/02/24 no microalbuminuria Last lipid profile: 03/02/24 Last dental exam: Refer to [facility] to evaluate with CGM pro. Patient may need to resume insulin therapy. * Assessment & Plan Note - Jason Espinal - 10/09/2024 2:31 PM ESTAssociated Problem(s): Bilateral leg pain - multifactorial, knee osteoarthritis, tendinitis, diabetes mellitus neuropathy, and PAD - Right mild PAD, left normal - starting PT * Assessment & Plan Note - Jason Espinal - 10/09/2024 2:31 PM ESTAssociated Problem(s): Essential hypertension -Goal BP < 140/90 per JNC-8, <130/80 per ACC/AHA guideline -Continue working on lifestyle modifications -Continue metoprolol succinate to 150 mg daily. -Continue lisinopril 40 mg daily. -Continue chlorthalidone 25 mg daily. documented in this encounter Plan of Treatment Upcoming Encounters Date Type Department Care Team (Late st Contact Info) Description 10/12/2024 9:00 AM EST Medication Management [facility] [address] [place] [address] Jame Carpenter, PharmD [address] [place] [address] documented as of this encounter Goals Goal Patient Goal Type Associated Problems Recent Progress Patient-Stated? Author Blood Pressure < 140/90 Blood Pressure 123/69(2024 2:15 PM EST) No Jame Carpenter PharmD Hemoglobin A1c < 7 Result Component 8.8( 2:17 PM EST) No Jame Carpenter PharmD documented as of this encounter Procedures Procedure Name Priority Date/Time Associated Diagnosis Comments POCT GLYCOSYLATED HEMOGLOBIN (HGB A1C) Routine 10/09/2024 2:17 PM EST Type 2 diabetes mellitus with hyperglycemia, without long-term current use of insulin ([facility]) POCT GLUCOSE Routine 10/09/2024 2:14 PM EST Type 2 diabetes mellitus with hyperglycemia, without long-term current use of insulin ([facility]) documented in this encounter Results * (ABNORMAL) POCT glycosylated hemoglobin (Hgb A1c) (10/09/2024 2:17 PM EST) Hemoglobin A1C 8.8(A) 4.0 - 6.0 % QC Media Lot # [id number] Lot# Expiration Date Blood Capillary blood specimen / Unknown 10/09/2024 2:17 PM EST Mamie Bolanos MD POINT OF CARE TEST ENTER/EDIT OR DERABLES Final Result * POCT glucose manually resulted (10/09/2024 2:14 PM EST) Glucose Blood, POC 200 60 - 200 mg/dL QC Media Lot # [id number] Lot# Expiration Date 025 Blood Capillary blood specimen / Unknown 10/09/2024 2:14 PM EST Mamie Bolanos MD POINT OF CARE TEST ENTER/EDIT OR DERABLES Final Result documented in this encounter Visit Diagnoses Diagnosis Essential hypertension- Primary Unspecified essential hypertension Type 2 diabetes mellitus with hyperglycemia, without long-term current use of insulin ([facility]) Dyslipidemia Other and unspecified hyperlipidemia Bilateral leg pain Pain in soft tissues of limb Chronic recurrent major depressive disorder (CMS/HCC) Major depressive disorder, recurrent episode, unspecified Anxiety Anxiety state, unspecified Cervical paraspinal muscle spasm Spasm of muscle Chronic pain of both knees documented in this encounter Additional Health Concerns Assessment Noted Time PHQ-9 Depression Total Score: 8 05/15/20 24 1:14 PM EDT documented as of this encounter Care Teams Goodwill Ambassador Relationship Specialty Start Date End Date Mamie Bolanos MD [address] [place] [address] PCP - General Family Medicine 09/23/15 Jame Carpenter, NhungD [address] [place] [address] Pharmacist Internal Medicine 07/21/23 documented as of this encounter
--- OUTSIDE RECORDS SUMMARY | 2024-10-10 18:22 | XMS_ITS ---
Author Organization [facility] Address [address] [place] [address] Care Team Providers Care Video Producer Name Role Phone Cici ALVES, Mamie Primary Care Provider Cordell Martinez Unavailable [phone] REASON FOR VISIT screening,hx polyps PROBLEMS Problem Type ICD Code Onset Dates Problem Status W/U Status Risk SNOMED Code Notes Problem Diverticulosis of large intestine without perforation or abscess without bleeding (K57.30) Active confirmed Diverticul ar disease of colon (074044348) Encounters Encounter Location Date Provider Diagnosis [facility] Outpatient [address] [place] [phone] 06/26/2024 Cordell Loza Colon cancer scree jermaine Z12.11 ; Personal history of colonic polyps Z86.0100 ; Diverticulosis of large intestine without perforation or abscess without bleeding K57.30 and Other hemorrhoids K64.8 ASSESSMENTS Encounter Date Diagnosis Assessment Notes Treatment Notes Treatment Clinical Notes 06/26/2024 Colon cancer screening (ICD-10 - Z12.11) 06/26/2024 Personal history of colonic polyps (ICD-10 - Z86.0100) 06/26/2024 Diverticulosis of large intestine without perforation or abscess without bleeding (ICD-10 - K57.30) 06/26/2024 Other hemorrhoids (ICD-10 - K64.8) PLAN OF TREATMENT No Information
--- OUTSIDE RECORDS SUMMARY | 2024-10-10 18:22 | XMS_ITS | Encounter Summary ---
Author Organization [facility] Address [address] [place] [address] 7[address] [place] [address] Care Team Providers Care Fatback Trimmer Name Role Phone Mamie Bolanos MD Primary Care Provider [phone] Jame Carpenter PharmD Unavailable [phone] Reason for Visit * Reason Comments Med Refill Encounter Details Date Type Department Care Team (Late Contact Info) Description 01/13/2023 Refill [facility] [address] [place], [place] [phone] Breann Mclain MD [address] [place], [place] [phone] Social History Tobacco Use Types Packs/Day Years Used Date Smoking Tobacco: Never Depression Answer Date Recorded Patient Health Questionnaire-9 Score 14 01/12/2023 Depression Answer Date Recorded Patient Health Questionnaire-2 Score 3 01/12/2023 Sex and Gender Information Value Date Recorded Sex Assigned at Male 06/15/2022 10:16 AM EDT Legal Sex Male 10:16 AM EDT Gender Identity Male 06/15/2022 10:16 AM EDT Sexual Orientation Choose not to disclose 2021 10:16 AM EDT COVID-19 Exposure Response Date Recorded In the last 10 days, have yo u been in contact with someone who was confirmed or suspected to have Coronavirus/COVID-19? No / Unsure 01/08/2023 9:14 AM EDT documented as of this encounter Plan of Treatment Upcoming Encounters Date Type Department Care Team ([facility] Contact Info) Description 10/12/2024 9:00 AM EST Medication Management [facility] [address] [place], [place] [phone] Jame Carpenter, PharmD [address] [place] [address] documented as of this encounter Visit Diagnoses Not on filedocumented in this encounter Additional Health Concerns Assessment Noted Time PHQ-9 Depression Total Score: 14 01/12/ 023 9:33 AM EDT documented as of this encounter Care Teams Fatback Trimmer Relationship Specialty Start Date End Date Mamie Bolanos MD [address] [place] [phone] PCP - General Family Medicine 09/23/15 Jame Carpenter, NhungD [address] [place] [phone] Pharmacist Internal Medicine 07/21/23 documented as of this encounter
--- OUTSIDE RECORDS SUMMARY | 2024-10-10 18:22 | XMS_ITS | Clinical Summary ---
Author Organization [employer] Address [address] [place] [address] Care Team Providers Care Rural Carrier Name Role Phone Mamie Bolanos MD Primary Care Provider [phone] Jame Carpenter PharmD Unavailable [phone] Allergies No known active allergies Medications * This document contains information received from the source organization and may not represent a complete record from that organization. hydrOXYzine pamoate (Vistaril) 25 MG capsuleIndicatio ns:Anxiety Take 1 capsule (25 mg) by mouth every 8 (eight) hours if needed for anxiety, allergies or itching. 60 capsule 3 023 Active Blood Pressure Monitor kitIndications:E ssential hypertension Use to measure blood pressure daily as directed 1 kit 023 Active lidocaine (Lidoderm) 5 % patch Apply 1 patch topically in the morning. Remove & discard patch within 12 hours or as directed by . 30 patch 11 024 Active sertraline (Zoloft) 100 MG tabletIndication s:Chronic recurrent major depressive disorder (CMS/HCC) TAKE 2 TABLETS BY MOUTH ONCE DAILY IN THE MORNING 60 tablet 11 024 Active Aspirin Adult Low Strength 81 MG EC tabletIndication s:Type 2 diabetes mellitus with hyperglycemia, without long-term current use of insulin (CMS/HCC) TAKE 1 TABLET BY MOUTH AT BEDTIME 90 tablet 3 024 Active Jardiance 25 MGIndications:Ty pe 2 diabetes mellitus with hyperglycemia, without long-term current use of insulin (CMS/HCC) TAKE 1 TABLET BY MOUTH EVERY MORNING 90 tablet 3 024 Active metFORMIN (Glucophage) 1000 MG tabletIndication s:Type 2 diabetes mellitus with hyperglycemia, without long-term current use of insulin ([facility]) TAKE 1 TABLET BY MOUTH TWICE DAILY IN THE MORNING AND AT BEDTIME 180 tablet Active metoprolol succinate XL (Toprol-XL) 100 MG 24 hr tablet TAKE 1 AND 1/2 TABLETS BY MOUTH IN THE MORNING 135 tablet Active TRUEplus Lancets 33G miscIndications: Type 2 diabetes mellitus with hyperglycemia ([facility]) TEST BLOOD SUGAR 4 - 5 TIMES DAILY 100 each Active glucose blood (FREESTYLE LITE) test stripIndications :Diabetic polyneuropathy associated with type 2 diabetes mellitus ([facility]) TEST BLOOD SUGAR 4 TO 5 TIMES PER DAY DIRECTED 100 strip Active Alcohol Swabs (Alcohol Prep) 70 % padsIndications: Diabetic polyneuropathy associated with type 2 diabetes mellitus ([facility]) USE 4 TO 5 TIMES PER DAY DIRECTED 100 each Active atorvastatin (Lipitor) 80 MG tablet TAKE 1 TABLET BY MOUTH AT BEDTIME 90 tablet Active lisinopril 40 MG tablet Take 1 tablet (40 mg) by mouth in the morning. 90 tablet Active latanoprost (Xalatan) 0.005 % ophthalmic solution INSTILL 1 DROP IN EACH EYE AT BEDTIME 2.5 mL Active fenofibrate (Triglide) 160 MG tablet TAKE 1 TABLET BY MOUTH EVERY MORNING 90 tablet Active Trulicity 3 MG/0.5ML solution pen-injector INJECT ONE PEN (= 3MG) SUBCUTANEOUSLY ONCE A WEEK DIRECTED 2 mL Active gabapentin (Neurontin) 300 MG capsule Take 1 capsule (300 mg) by mouth at bedtime. 90 capsule Active ezetimibe (Zetia) 10 MG tablet Take 1 tablet (10 mg) by mouth Once per day. 90 tablet Active tadalafil (Cialis) 10 MG tablet Take 1 tablet =30 minutes prior to anticipated sexual activity; do not take more than once daily 10 tablet 3 024 Active omeprazole (PriLOSEC) [address] capsule TAKE 1 CAPSULE BY MOUTH EVERY MORNING 90 capsule 024 Active meloxicam (Mobic) 15 MG tablet Take 1 tablet by mouth twice daily as needed for pain. Take with food. 15 tablet Active cyclobenzaprine (Flexeril) 10 MG tablet Take 1 tablet (10 mg) by mouth at bedtime for 10 days. 10 tablet Active insulin degludec (Tresiba FlexTouch) 100 UNIT/ML injection Administer 10 units subcutaneous every morning 3 mL 12 Active pen needle 32G x 4 mm misc Use for insulin administration 100 each 3 025 2025 Active meloxicam (Mobic) 15 MG tablet Take 1 tablet by mouth twice daily as needed for pain. Take with food. 60 tablet 3 023 2024 Discontinued(R eorder (will not trigger notification to Pharmacy)) semaglutide (Ozempic) 2 MG/1.5ML solution pen-injector Inject 1 mg under the skin 1 (one) time per week. 2 each 024 2024 Discontinued(M ed list cleanup (will not trigger notification to Pharmacy)) Hospital, Clinic, or Other Facility Administered Medication Ordered Dose Route Frequency Start Date End Date Status ketorolac (Toradol) injection 30 mgIndications:Cervical paraspinal muscle spasm 30 mg IM Once 09/25/2024 09/25/2024 E nded Active Problems Problem Noted Date Diagnosed Date Cervical paraspinal muscle spasm 09/25/2024 Assessment & Plan (10/09/2024 2:59 PM EST): Advised to put heat to affected area and do stretching exercises twice daily. Continue stretching exercise. Pt was referred to PT Given Toradol 30 mg IM on 09/25/24, continue meloxicam 15 mg PRN Continue Tylenol plus Flexeril PRN Advised to come to acupuncture clinic. Will refer to pt orthopedist Assessment & Plan (09/25/2024 2:45 PM EST): Advised to put heat to affected area and do stretching exercises twice daily. I will refer to PT Toradol 30 mg IM today, continue meloxicam 15 mg daily x 1 week then as needed Can use Tylenol plus Flexeril nightly x 1 week then as needed Advised to come to acupuncture clinic. Erectile dysfunction 05/23/2024 Assessment & Plan (05/23/2024 6:43 AM EDT): - multifactorial: age; chronic disease (diabetes mellitus, PAD, hypertension); medications - check PSA and UA - echo in 2023 showed normal EF - will start PDE5 inhibitor if lab does not warrant urology referral Peripheral artery disease 03/01/2024 Assessment & Plan (05/23/2024 6:32 AM EDT): - JANE in December 2022 in [facility]: - At rest: The Ankle / Brachial Index on the right is 0.99 . The Ankle / Brachial Index on the left is 0.95 . The bilateral PVR waveform is moderately abnormal, exhibiting a decreased amplitude. - After exereses (3 min of walking on the treadmill): The Ankle / Brachial Index on the right is 0.85 . The Ankle / Brachial Index on the left is 0.88 . There is mild decreased arterial flow to the level of the ankle after exercise. 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 The Ankle / Brachial Index on the left is 0.95 . The bilateral PVR waveform is moderately abnormal, exhibiting a decreased amplitude. - After exereses (3 min of walking on the treadmill): The Ankle / Brachial Index on the right is 0.85 . The Ankle / Brachial Index on the left is 0.88 . There is mild decreased arterial flow to the level of the ankle after exercise. - Will re-evaluate is ADRI due to his pain Wart of hand 03/01/2024 Assessment & Plan (03/01/2024 4:31 PM EDT): - left 3rd finger - 3 lesions were treated with cryotherapy Left elbow pain 08/04/2023 Assessment & Plan (08/04/2023 6:04 AM EST): - Likely epicondylitis - ice, judicious use of NSAIDs, brace / YOVANI bandage, activity modification - Refer to pt's orthopedist Epigastric abdominal pain 07/21/20232022 Bilateral leg pain 01/06/2023 Assessment & Plan (10/09/2024 2:31 PM EST): - multifactorial, knee osteoarthritis, tendinitis, diabetes mellitus neuropathy, and PAD - Right mild PAD, left normal - starting PT Assessment & Plan (05/23/2024 6:36 AM EDT): - multifactorial, knee osteoarthritis, tendinitis, diabetes mellitus neuropathy, and PAD - Right mild PAD, left normal - starting PT Assessment & Plan (03/01/2024 4:38 PM EDT): - multifactorial, knee osteoarthritis, tendinitis, and PAD - repeat LE arterial doppler / JANE Assessment & Plan (04/23/2023 5:21 PM EDT): - evaluated by vascular specialist [facility] in December 2022, JANE not suggestive of PAD. Venous study was ordered - NCT/EMG in Aug 2022 showed mild to moderate venous insufficiency. - will check the status of venous study Venous insufficiency 01/06/2023 Weight loss 08/18/2022 Assessment & Plan (08/04/2023 5:53 AM EST): Last EGD in November 2009, hiatal hernia, small colonic polyp (tubular adenoma), internal hemorrhoids, diverticulosis Last colonoscopy in 2016, hyperplastic rectal polyp Seen by GI in 2019. given reassurance Pt is on SGLT-2 inhibitor and GLP-1 [address] CT scan on Assessment & Plan (04/23/2023 5:13 PM EDT): Last EGD in November 2009, hiatal hernia, small colonic polyp (tubular adenoma), internal hemorrhoids, diverticulosis Last colonoscopy in 2016, hyperplastic rectal polyp seen by GI in 2019. given reassurance Pt is on SGLT-2 inhibitor and GLP-1 agonist Pt has not completed CT-scan; will order CT Assessment & Plan (12/07/2022 6:08 AM EDT): - with nausea and abdominal discomfort - evaluate with CT scan Left ventricular outflow tract obstruction 09/23 Assessment & Plan (05/23/2024 6:34 AM EDT): - Echo on 09/21/17 showed Mild concentric LVH. LV systolic function is hyperdynamic with estimated EF of > 70%. Mild ROMULO (systolic anterior motion) with no significant LVOT (left ventricular outflow tract) obstruction. Trace mitral regurgitation. - seen by [facility] cardiology on 10/21/22. No follow up appointment was scheduled - most recent echo on 03/23/24. Normal LV EF60-65% with moderate asymmetric septal hypertrophy with dynamic obstructive physiology. Mild late systolic eccentric mitral regurgitation. Mildly dilated left atrium. Assessment & Plan (03/01/2024 4:26 PM EDT): - last echo on 09/21/17 showed Mild concentric LVH. LV systolic function is hyperdynamic with estimated EF of > 70%. Mild ROMULO (systolic anterior motion) with no significant LVOT (left ventricular outflow tract) obstruction. Trace mitral regurgitation. - seen by [facility] cardiology on 10/21/22. Echocardiogram was ordered. If echo is normal, pt do not need a follow-up. Pt has not had an echocardiogram yet. - since he has not rescheduled his echo, will order echocardiogram Assessment & Plan (04/23/2023 5:17 PM EDT): - last echo on 09/21/17 showed Mild concentric LVH. LV systolic function is hyperdynamic with estimated EF of > 70%. Mild ROMULO (systolic anterior motion) with no significant LVOT (left ventricular outflow tract) obstruction. Trace mitral regurgitation. - seen by [facility] cardiology on 10/21/22. Echocardiogram was ordered. If echo is normal, pt do not need a follow-up. Pt has not had an echocardiogram yet. Will ask pt's [facility] adult care provider to assist him reschedule appt for echocardiogram. Assessment & Plan (11/23/2022 4:18 PM EDT): last echo on 09/21/17 showed Mild concentric LVH. LV systolic function is hyperdynamic with estimated EF of > 70%. Mild ROMULO (systolic anterior motion) with no significant LVOT (left ventricular outflow tract) obstruction. Trace mitral regurgitation. Assessment & Plan (08/25/2022 11:33 AM EST): last echo on 09/21/17 showed Mild concentric LVH. LV systolic function is hyperdynamic with estimated EF of > 70%. Mild ROMULO (systolic anterior motion) with no significant LVOT (left ventricular outflow tract) obstruction. Trace mitral regurgitation. Chronic recurrent major depressive disorder 08/16 Assessment & Plan (10/09/2024 3:03 PM EST): - continue sertraline 100 mg daily - Pt no longer has behavioral health services; will refer - will obtain EKG at next visit Assessment & Plan (03/01/2024 4:35 PM EDT): - continue sertraline 100 mg daily - continue current behavioral health service - will obtain EKG to check QTc Assessment & Plan (08/04/2023 6:01 AM EST): - continue sertraline 100 mg daily - continue current BHS - he was able to contract his safety today Assessment & Plan (04/23/2023 5:22 PM EDT): - continue sertraline 100 mg daily - consider restarting BHS - he was able to contract his safety today Assessment & Plan (01/12/2023 10:06 AM EDT): Pt was referred for Psychopharmacology intake but we were unable to do the full visit today r/t acute illness. Patient requested rescheduling which we will do. Regarding his c/o vomiting/diarrhea, suggested he seek care at [facility] if needed. He agrees with the plan. Assessment & Plan (12/07/2022 6:09 AM EDT): - continue sertraline 100 mg daily - consider restarting BHS - he was able to contract his safety today Diabetic polyneuropathy 05/23/2015 Assessment & Plan (05/16/2024 9:07 AM EDT): - evaluated by vascular specialist - unlikely to have claudication - trial of gabapentin Assessment & Plan (04/23/2023 5:17 PM EDT): - evaluated by vascular specialist - unlikely to have claudication - trial of gabapentin Assessment & Plan (12/07/2022 6:06 AM EDT): - evaluated by vascular specialist - unlikely to have claudication - trial of gabapentin Essential hypertension 05/23/2015 Assessment & Plan (10/09/2024 2:31 PM EST): -Goal BP < 140/90 per JNC-8, <130/80 per ACC/AHA guideline -Continue working on lifestyle modifications -Continue metoprolol succinate to 150 mg daily. -Continue lisinopril 40 mg daily. -Continue chlorthalidone 25 mg daily. Assessment & Plan (05/16/2024 9:07 AM EDT): -Goal BP < 140/90 per JNC-8, <130/80 per ACC/AHA guideline -Continue working on lifestyle modifications -Continue metoprolol succinate to 150 mg daily. -Continue lisinopril 40 mg daily. -Continue chlorthalidone 25 mg daily. Assessment & Plan (03/01/2024 4:07 PM EDT): -Goal BP < 140/90 per JNC-8, <130/80 per ACC/AHA guideline -Continue working on lifestyle modifications -Continue metoprolol succinate to 150 mg daily. -Continue lisinopril 40 mg daily. -Continue chlorthalidone 25 mg daily. Assessment & Plan (07/27/2023 6:20 AM EST): -Goal BP < 140/90 per JNC-8, <130/80 per ACC/AHA guideline -Continue working on lifestyle modifications -Continue metoprolol succinate to 150 mg daily. -Continue lisinopril 40 mg daily. -Continue chlorthalidone 25 mg daily. -f/u in 3-4 mo Assessment & Plan (04/23/2023 4:53 PM EDT): -Goal BP < 140/90 per JNC-8, <130/80 per ACC/AHA guideline -Continue working on lifestyle modifications -Continue metoprolol succinate to 150 mg daily. -Continue lisinopril 40 mg daily. -Continue chlorthalidone 25 mg daily. -f/u in 3-4 mo Assessment & Plan (11/23/2022 4:18 PM EDT): -Goal BP < 140/90 per JNC-8, <130/80 per ACC/AHA guideline -Continue working on lifestyle modifications -Continue metoprolol succinate to 150 mg daily. -Continue lisinopril 40 mg daily. -Continue chlorthalidone 25 mg daily. -f/u in 3-4 mo Assessment & Plan (08/23/2022 7:41 PM EST): -Goal BP < 140/90 per JNC-8, <130/80 per ACC/AHA guideline -Continue working on lifestyle modifications -Continue metoprolol succinate to 150 mg daily. -Continue lisinopril 40 mg daily. -Continue chlorthalidone 25 mg daily. -f/u in 3-4 mo Gastroesophageal reflux disease without esophagi tis 05/23/2015 Assessment & Plan (03/01/2024 4:28 PM EDT): - following with GI, Dr. Loza - scheduled for colonoscopy and EGD Knee pain 05/23/2015 Assessment & Plan (10/09/2024 3:01 PM EST): - X-ray in February 2024 showed mild degenerative changes of bilateral knees. - continue judicious use of analgesic - Completed PT; referred to his orthopedist -Continue current pain medications Assessment & Plan (05/23/2024 6:36 AM EDT): - X-ray in February 2024 showed mild degenerative changes of bilateral knees. - continue judicious use of analgesic - starting PT Assessment & Plan (03/01/2024 4:37 PM EDT): - check X-ray - continue judicious use of analgesic Tubular adenoma of colon 05/23/2015 023 Assessment & Plan (05/23/2024 6:28 AM EDT): - 12/12/2009 tubular adenoma - 05/21/2016 hyperplastic polyp - seen by Dr. Loza recently; upcoming colonoscopy in June Assessment & Plan (03/01/2024 4:29 PM EDT): - 12/12/2009 tubular adenoma - 05/21/2016 hyperplastic polyp - seen by Dr. Loza recently; upcoming colonoscopy Assessment & Plan (07/27/2023 6:21 AM EST): - 12/12/2009 tubular adenoma - 05/21/2016 hyperplastic polyp - 5-year follow-up colonoscopy was recommended Assessment & Plan (04/23/2023 5:12 PM EDT): - 12/12/2009 tubular adenoma - 05/21/2016 hyperplastic polyp - 5-year follow-up colonoscopy was recommended Anxiety 12/20/2012 Type 2 diabetes mellitus 04/27/2012 Assessment & Plan (10/09/2024 2:56 PM EST): -HgbA1C 8.8% on 10/09/24, -Emphasized the importance of SMBG and medication adherence. -Continue working on lifestyle modification. -Continue Trulicity to 3.0 mg weekly, possible side effect, will monitor at this time -Continue Jardiance 25mg daily -Continue metformin 1000mg bid -Add basal insulin 10 units every morning Treatment Hx Discontinued glipizide in Sep 2015. Insulin discontinued in 2017 when his glycemic control improved with GLP-1 RA and SGLT-2 inhibor. Last eye exam: Jun 2023 Last foot exam: 03/01/24, decreased sensation / cold extremity, diabetic neuropathy Last microalbumin test: 03/02/24 no microalbuminuria Last lipid profile: 03/02/24 Last dental exam: Refer to [facility] to evaluate with CGM pro. Patient may need to resume insulin therapy. Assessment & Plan (05/23/2024 6:38 AM EDT): -HgbA1C 7.9%, improved from 9.2% on 03/01/24, -Emphasized the importance of SMBG and medication adherence. -Continue working on lifestyle modification. -Continue Trulicity to 3.0 mg weekly, possible side effect, will monitor at this time -Continue Jardiance 25mg daily -Continue metformin 1000mg bid Treatment Hx Discontinued glipizide in Sep 2015. Insulin discontinued in 2017 when his glycemic control improved with GLP-1 RA and SGLT-2 inhibor. Last eye exam: Jun 2023 Last foot exam: 03/01/24, decreased sensation / cold extremity, diabetic neuropathy Last microalbumin test: 03/02/24 no microalbuminuria Last lipid profile: 03/02/24 Last dental exam: Refer to [facility] to evaluate with CGM pro. Patient may need to resume insulin therapy. Assessment & Plan (03/01/2024 4:34 PM EDT): -HgbA1C 9.2% on 03/01/24, trending up 7.9% on 07/27/23 -Emphasized the importance of SMBG and medication adherence. -Continue working on lifestyle modification. -Continue Trulicity to 3.0 mg weekly, possible side effect, will monitor at this time -Continue Jardiance 25mg daily -Continue metformin 1000mg bid Treatment Hx Discontinued glipizide in Sep 2015. Insulin discontinued in 2017 when his glycemic control improved with GLP-1 RA and SGLT-2 inhibor. Last eye exam: Jun 2023 Last foot exam: 03/01/24, decreased sensation / cold extremity, diabetic neuropathy Last microalbumin test: 04/26/23 no microalbuminuria Last lipid profile: 04/26/23 TC 232; TG 173; HDL 38; LDL 173 Last dental exam: Refer to [facility] to evaluate with CGM pro. Patient may need to resume insulin therapy. Assessment & Plan (08/04/2023 6:00 AM EST): -HgbA1C 7.9% on 07/27/23, unchanged from 7.8% on 04/20/23 -Emphasized the importance of SMBG and medication adherence. -Continue working on lifestyle modification. -Continue Trulicity to 3.0 mg weekly, possible side effect, will monitor at this time -Continue Jardiance 25mg daily -Continue metformin 1000mg bid Treatment Hx Discontinued glipizide in Sep 2015. Insulin discontinued in 2017 when pt started on GLP-1 agonist. Last eye exam: Jun 2023 Last foot exam: 05/11/22, decreased sensation / cold extremity, diabetic neuropathy Last microalbumin test: 04/26/23 no microalbuminuria Last lipid profile: 04/26/23 TC 232; TG 173; HDL 38; LDL 173 Last dental exam: within 1 mo Follow-up in 3 mo or sooner prn Assessment & Plan (04/23/2023 4:53 PM EDT): -HgbA1C 7.8% on 04/20/23, improving -Emphasized the importance of SMBG and medication adherence. -Continue working on lifestyle modification. -Continue Trulicity to 3.0 mg weekly, possible side effect, will monitor at this time -Continue Jardiance 25mg daily -Continue metformin 1000mg bid Treatment Hx Discontinued glipizide in Sep 2015. Insulin discontinued in 2017 when pt started on GLP-1 agonist. Last eye exam: Aug 2018 Last foot exam: 05/11/22, decreased sensation / cold extremity, diabetic neuropathy Last microalbumin test: 07/24/20 [facility] 8 Last lipid profile: 05/18/22 TC 236; TG 106; HDL 47; LDL 167 Last dental exam: within 1 mo Immunizations: Will need influenza vaccine. Follow-up in 3 mo or sooner prn Assessment & Plan (11/23/2022 4:17 PM EDT): -HgbA1C 7.5% on 05/18/22 -Emphasized the importance of SMBG and medication adherence. -Continue working on lifestyle modification. -Continue Trulicity to 3.0 mg weekly, possible side effect, will monitor at this time -Continue Jardiance 25mg daily -Continue metformin 1000mg bid Treatment Hx Discontinued glipizide in Sep 2015. Insulin discontinued in 2017 when pt started on GLP-1 agonist. Last eye exam: Aug 2018 Last foot exam: 05/11/22, decreased sensation / cold extremity, diabetic neuropathy Last microalbumin test: 07/24/20 [facility] 8 Last lipid profile: 05/18/22 TC 236; TG 106; HDL 47; LDL 167 Last dental exam: within 1 mo Immunizations: -Influenza - Up to date -Pneumovax - Up-to-date -Hep B - Completed Assessment & Plan (08/23/2022 7:40 PM EST): -HgbA1C 7.5% on 05/18/22 -Emphasized the importance of SMBG and medication adherence. -Continue working on lifestyle modification. -Continue Trulicity to 3.0 mg weekly, possible side effect, will monitor at this time -Continue Jardiance 25mg daily -Continue metformin 1000mg bid Treatment Hx Discontinued glipizide in Sep 2015. Insulin discontinued in 2017 when pt started on GLP-1 agonist. Last eye exam: Aug 2018 Last foot exam: 05/11/22, decreased sensation / cold extremity, diabetic neuropathy Last microalbumin test: 07/24/20 [facility] 8 Last lipid profile: 05/18/22 TC 236; TG 106; HDL 47; LDL 167 Last dental exam: within 1 mo Immunizations: -Influenza - Up to date -Pneumovax - Up-to-date -Hep B - Completed Dyslipidemia 04/27/2012 Assessment & Plan (10/09/2024 2:32 PM EST): - with hypertriglyceridemia - Last lipid profile: 03/02/24, elevated LDL despite maximum dose of atorvastatin, Triglyceride has improved - Current medication: Atorvastatin 80 mg qhs; fenofibrate 160mg daily - Previously on Hessmer-3 due to hypertriglyceridemia - Add ezetimibe - Consider evaluation and treatment for familial hypercholesterolemia and consider PSCK9 inhibitor - Continue working on lifestyle modification. Assessment & Plan (05/15/2024 4:34 PM EDT): - with hypertriglyceridemia - Last lipid profile: 03/02/24, elevated LDL despite maximum dose of atorvastatin, Triglyceride has improved - Current medication: Atorvastatin 80 mg qhs; fenofibrate 160mg daily - Previously on Hessmer-3 due to hypertriglyceridemia - Add ezetimibe - Consider evaluation and treatment for familial hypercholesterolemia and consider PSCK9 inhibitor - Continue working on lifestyle modification. Assessment & Plan (03/01/2024 4:36 PM EDT): With hypertriglyceridemia Last fasting lipid profile: 04/26/23 TC 232; TG 173; HDL 38; LDL 173 Current medication: Atorvastatin 80 mg qhs; Hessmer 3 1000 mg bid; fenofibrate 160mg daily (recently switched from 200 mg due to insurance formulary) According to ACC/AHA guideline, high-intensity statin therapy is recommended. He is already on high-intensity statin therapy. Emphasized the importance of lifestyle modification. Consider adding Zetia due to elevated LDL Assessment & Plan (08/04/2023 6:01 AM EST): With hypertriglyceridemia Last fasting lipid profile: 04/26/23 TC 232; TG 173; HDL 38; LDL 173 Current medication: Atorvastatin 80 mg qhs; Hessmer 3 1000 mg bid; fenofibrate 160mg daily (recently switched from 200 mg due to insurance formulary) According to ACC/AHA guideline, high-intensity statin therapy is recommended. He is already on high-intensity statin therapy. Emphasized the importance of lifestyle modification. Consider adding Zetia due to elevated LDL Assessment & Plan (11/23/2022 4:17 PM EDT): With hypertriglyceridemia Last fasting lipid profile: 05/18/22 TC 236; TG 106; HDL 47; LDL 167 Current medication: Atorvastatin 80 mg qhs; Hessmer 3 1000 mg bid; fenofibrate 160mg daily (recently switched from 200 mg due to insurance formulary) According to ACC/AHA guideline, high-intensity statin therapy is recommended. He is already on high-intensity statin therapy. Emphasized the importance of lifestyle modification. Assessment & Plan (08/23/2022 7:42 PM EST): With hypertriglyceridemia Last fasting lipid profile: 05/18/22 TC 236; TG 106; HDL 47; LDL 167 Current medication: Atorvastatin 80 mg qhs; Hessmer 3 1000 mg bid; fenofibrate 160mg daily (recently switched from 200 mg due to insurance formulary) According to ACC/AHA guideline, high-intensity statin therapy is recommended. He is already on high-intensity statin therapy. Emphasized the importance of lifestyle modification. Recurrent acute otitis media 04/27/2012 Resolved Problems Problem Noted Date Diagnosed Date Resolved Date COVID-19 08/18/2022 08/25/2022 Otitis externa 04/27/2012 08/25/2022 Obesity 04/27/2012 01/06/2023 Encounters Date Type Department Care Team Description 10/10/[address] [address] Mamie Bolanos MD Lab Orders 10/09/2024 2:30 PM EST Office Visit [address] [address] Mamie Bolanos MD Essential hypertension (Primary Dx); Type 2 diabetes mellitus with hyperglycemia, without long-term current use of insulin ([facility]); Dyslipidemia; Bilateral leg pain; Chronic recurrent major depressive disorder (CMS/HCC); Anxiety; Cervical paraspinal muscle spasm; Chronic pain of both knees 10/09/2024 Travel 10/04/[address] [address] Mamie Bolanos MD Chart Prep 09/25/2024 2:40 PM EST Office Visit [facility] [address] [place] [address] Emmy Call MD Cervical paraspinal muscle spasm (Primary Dx) 09/22/2024 Patient Outreach [address] [address] Mamie Bolanos MD Care Coordination (CHW outreach for SDOH food needs-referral completed /) 09/22/2024 Patient Outreach [address] [address] Mamie Bolanos MD Pre-visit Planning (SDOH screening positive and Tobacco screening negative) 09/08/[address] [address] Jen Lucas MA 09/06/[address] [address] Mamie Bolanos MD Nurse Triage 08/24/[address] [place] [address] Mamie Bolanos MD 07/20/2024 Telephone [facility] [address] [place], [place] [phone] Uma Max MA DME from [facility] 07/17/2024 Refill [facility] [address] [facility], [place] [phone] Mamie Bolanos MD 07/12/2024 Telephone [facility] [address] [facility], [place] [phone] Mamie Bolanos MD Durable Medical Equipment from Last 3 Months Immunizations Name Administration Dates Next Due Hep B, adult 02/11/2017,05/23/2015,09/13/2013 Influenza injectable quadriv alent IIV4 with preservative 05/01/2019,07/05/2017,06/08/2016,05/23 Influenza injectable quadriv alent preservative free 07/27/2023,07/21/2021,07/23/2020,07/25 Influenza, IIV3, injectable 04/16/2018,1 08/31/2010,04/14/2010,05/13,06/11/2008,05/31/2007,09/21/2005 ,06/13/2003 Influenza, Split (incl. estephania fied surface antigen) 04/16/2015,05/29/2013,04/27/2012 Influenza, seasonal, injecta ble, preservative free 05/15/2024 Moderna Covid-19 Vaccine 12+ 08/21/2021,11/29/19 21,10/18/2020 Pfizer Covid-19 Vaccine 12+ 05/15/2024 Pneumococcal Conjugate PCV 20 03/01/2024 Pneumococcal Polysaccharide PPSV23 05/15/2008,,06/13/2003 Pneumococcal, Unspecified 06/13/2003 TD (adult), 2 Lf tetanus tox oid, preservative free, adsorbed 06/28/2017,11/13/2001 Tdap 05/29/2021, 7,12/13/2015,01/21 Zoster, Recombinant 06/12/2019,04/04/2019 Family History Medical History Relation Name Comments Diabetes type II Brother Diabetes type II Mother Asthma Sister Coronary artery disease Sister Diabetes type II Sister Heart attack Sister Hypertension Sister Stroke Sister Relation Name Status Comments Brother Mother Sister Social History Tobacco Use Types Packs/Day Years [...] not to disclose 2021 10:16 AM EDT Last Filed Vital Signs Vital Sign Reading [...] Mass Index 25.85 10/09/2024 2:15 PM EST Plan of Treatment Upcoming Encounters Date Type Department Care Team (Late st Contact Info) Description 10/12/2024 9:00 AM EST Medication Management [facility] [address] [place] [address] Jame Carpenter, PharmD [address] [place], [place] [phone] Health Maintenance Due Date Last Done Comments CT Colonography 1959 FIT DNA/Cologuard 1959 FIT 1959 FOBT 1959 Sigmoidoscopy 1959 Dental X-Ray: Full Mouth 06/27/2022 06/26/2019 Dental Oral Exam 10/23/2022 04/24/2022 Dental Prophylaxis 10/23/2022 04/24/2022 Dental X-Ray: Bitewings 04/25/2023 04/24/2022 Eye Exam 11/11/2024 11/11/2022, 10/15, 11/11/2022, Additional history exists Diabetes: Hemoglobin A1C 01/06/2025 025, 05/15/2024, 03/01/2024, Additional history exists Diabetes: Foot Exam 03/01/2025 03/01/2024, 03/01/2024, 03/01/2024, Additional history exists Diabetes: Urine Protein Screening 03/02/2025 03/02/2024, 04/26/2023, 07/24/2020 Lipid Panel 03/02/2025 03/02/2024, 04/16, 05/18/2022, Additional history exists Depression Screening 05/15/2025 05/15/2024, 05/15/20 SDOH Screening 09/22/2025 09/22/2024 Alcohol/Substance Use Screening 10/09/2025 10/09/2024 Tobacco Screening 10/09/2025 10/09/2024 Colonoscopy 06/26/2029 06/26/2024, 05/21/2016 Colorectal Cancer Screening 06/26/2029 DTaP/Tdap/Td Vaccines (6 - Td or Tdap) 05/29/2031 05/29/2021, 06/28/2017, 06/27/2017, Additional history exists RSV Patients and Patients Aged 60 years or older (1 - 1-dose 75+ series) 2034 Hepatitis B Vaccines Completed 02/11/2017, 05/23/2015, 09/13/2013 Zoster Vaccines Completed 06/12/2019, 04/04/2019 Hepatitis C Screening Completed 05/18/2022 Pneumococcal Vaccine: 50+ Years Completed 03/01/2024, 05/15/2008, 07/18/2007, Additional history exists COVID-19 Vaccine Completed 05/15/2024, 01/2022, 11/28/2020, Additional [...] patient's age to complete this topic Meningococcal Vaccine Aged Out No janet alis eligible based on patient's age to complete this topic RSV under 20 months Aged Out No longe r eligible based on patient's age to complete this topic Rotavirus Vaccines Aged Out No longer eligible based on patient's age to complete this topic Goals Goal Patient Goal Type Associated Problems Recent Progress Patient-Stated? Author Blood Pressure < 140/90 Blood Pressure 123/69(02/24/ 2025 2:15 PM EST) No Carpenter, Jame, PharmD Hemoglobin A1c < 7 Result Component 8.8( 2:17 PM EST) No Jame Carpenter PharmD Procedures Procedure Name Priority Date/Time Associated Diagnosis Comments POCT GLYCOSYLATED HEMOGLOBIN (HGB A1C) Routine 10/09/2024 2:17 PM EST Type 2 diabetes mellitus with hyperglycemia, without long-term current use of insulin (CMS/HCC) POCT GLUCOSE Routine 10/09/2024 2:14 PM EST Type 2 diabetes mellitus with hyperglycemia, without long-term current use of insulin (CMS/HCC) HM COLONOSCOPY Routine 06/26/2024 ALBUMIN, RANDOM URINE W/CREATININE Routine 03/02/2024 11:20 AM EDT Type 2 diabetes mellitus with hyperglycemia, without long-term current use of insulin (CMS/HCC) LIPID PANEL WITH REFLEX TO DIRECT LDL Routine 03/02/2024 11:16 AM EDT Type 2 diabetes mellitus with hyperglycemia, without long-term current use of insulin (CMS/HCC) Dyslipidemia ZZZ HISTORICAL HEPATITIS C AB W/REFL TO HCV RNA, QN, PCR Routine 05/18/2022 11:50 AM EDT from Last 3 Months or Most Recently Relevant to Health Maintenance Results * (ABNORMAL) POCT glycosylated hemoglobin (Hgb [...] Media Lot # [id number] Lot# Expiration Date [id number] Blood Capillary blood specimen / Unknown 10/09/2024 2:14 PM EST Mamie Bolanos MD POINT OF CARE TEST ENTER/EDIT OR DERABLES Final Result * Hm Colonoscopy (06/26/2024) Pathologist [facility] Colonoscopy Normal Normal 06/26/2024 Tammy Provider HEALTH MAINTENANCE Final Result * Albumin, Random Urine W/Creatinine (03/02/2024 11:20 AM EDT) Pathologist [facility] Creatinine, Urine 40.50 mg/dL [facility] Microalbumin Urine <5.0 mg/L [facility] Microalbum Creatinine Ratio Ur TNP <30 ug/mg cr [facility] Comment:Unable to calculate albumin/creatinine ratio due to lowmicroalbumin or creatinine result. Urine 03/02/2024 11:2 0 AM EDT 03/02/2024 1:02 PM EDT Mamie Bolanos MD LAB URINE ORDERABLES Final Resul t [facility] [address] [place], [place] [phone] * (ABNORMAL) Lipid Panel with Reflex to Direct LDL (03/02/2024 11:16 AM EDT) Pathologist [facility] Triglycerides 134 <150 mg/dL [facility] Comment:Desirable Triglyceri de: less than 150 mg/dLBorderline High Triglyceride 150-199 mg/dLHigh Triglyceride: 200-499 mg/dLVery High Triglyceride: greater than or equal to 5OO mg/dL Cholesterol 219(H) <200 mg/dL [facility] Comment:Desirable Cholestero l: less than 200 mg/dLBorderline High Cholesterol: 200-239 mg/dLHigh Cholesterol: greater than 239 mg/dL LDL Cholesterol Calculated 150(H) <100 mg/dL [facility] Comment:Desirable LDL: less than 100 mg/dLNear Optimal/Above Optimal LDL: 110- 129 mg/dLBorderline High LDL: 130-159 mg/dLHigh LDL: 160-189 mg/dLVery High LDL: greater than or equal to 190 mg/dL HDL Cholesterol 43 >40 mg/dL [facility] Comment:Desirable HDL: great er than 40 mg/dL Note: This HDL assay may give artificially low results in patients with liver disease. Blood 03/02/2024 11:1 6 AM EDT 03/02/2024 1:03 PM EDT Mamie Bolanos MD LAB BLOOD ORDERABLES Final Resul t Performing Organization Address [facility] de Phone Number [facility] [address] [place] [phone] * HEPATITIS C AB W/REFL TO HCV RNA, QN, PCR (05/18/2022 11:50 AM EDT) HEPATITIS C ANTIBODY NON-REACTI VE NON-REACT PRAMOD [facility] INDEX 0.08 <1.00 [facility] Comment: ?? HCV antibody was non-reactive. There is no laboratory ?? evidence of HCV infection. ?? In most cases, no further action is required. However, if recent HCV exposure is suspected, a test for HCV RNA (test code 38418) is suggested. ?? For additional information please refer to http://education.Websand.GigaMedia/faq/ALQ00a2 (This link is being provided for informational/ educational purposes only.) ?? 05/18/2022 11:5 0 AM EDT us Mamie Bolanos MD HISTORICAL/NON ORDERABLE LABS Fi nal Result Performing Organization Address [facility] Co de Phone Number CONVERTED LEGACY LABS from Last 3 Months or Most Recently Relevant to Health Maintenance Insurance MEDICARE [facility] STANDARD [facility] Care Teams Rural Carrier Relationship Specialty Start Date End Date Mamie Bolanos MD [address] [place] [address] PCP - General Family Medicine 09/23/15 Jame Carpenter, PharmD [address] [place] [phone] Pharmacist Internal Medicine 07/21/23
--- OUTSIDE RECORDS SUMMARY | 2024-10-10 18:22 | XMS_ITS | Encounter Summary ---
Author Organization [employer] Address [address] [facility] 7t [place] [address] Care Team Providers Care Medical Lab Director Name Role Phone Mamie Bolanos MD Primary Care Provider [phone] Jame Carpenter PharmD Unavailable [phone] Reason for Visit * Reason Comments Pre-visit Planning SDOH screening posit luis eduardo and Tobacco screening negative Encounter Details Date Type Department Care Team (Late st Contact Info) Description 09/22/2024 Patient Outreach [facility] [address] [place], [place] [phone] Mamie Bolanos MD [address] [place], [place] [phone] Pre-visit Planning (SDOH screening positive and Tobacco screening negative) Social History Tobacco Use Types Packs/Day Years [...] as of this encounter Progress Notes * Edith Mckeon - 09/22/2024 9:33 AM EST CC Edith Vaughn placed successful outbound call to patient for pre-visit planning. Patient name and confirmed. Patient confirms appt date and time, and has transportation arrangements. Biggest concern for appointment at this time is neck pain getting worse more than 5 months. Patient educated on extended clinic. Patient advised to bring to appointment a photo id and insurance card. Appropriate screenings completed in anticipation of appointment. . SDOH positive. Patient looking for assistance with Food insecurities. Referral will be placed. documented in this encounter Plan of Treatment Upcoming Encounters Date Type Department Care Team (Late st Contact Info) Description 10/12/2024 9:00 AM EST Medication Management [facility] [address] [place] [address] Jame Carpenter, PharmD [address] [place] [address] documented as of this encounter Goals Goal [...] documented as of this encounter Care Teams Medical Lab Director Relationship Specialty Start Date End Date Mamie Bolanos MD [address] [place] [address] PCP - General Family Medicine 09/23/15 Jame Carpenter PharmD [address] [place] [address] Pharmacist Internal Medicine 07/21/23 documented as of this encounter
--- OUTSIDE RECORDS SUMMARY | 2024-10-10 18:22 | XMS_ITS | Encounter Summary ---
Author Organization [employer] [facility] Address [address] [facility] 7t [place] [address] Care Team Providers Care Supervisor Sewing Room Name Role Phone Mamie Bolanos MD Primary Care Provider [phone] Jame Carpenter PharmD Unavailable [phone] Encounter Details Date Type Department Care Team (Late Contact Info) Description 01/07/2023 Abstract [facility] [address] [place] [address] [phone] Mamie Bolanos MD [address] [place], [place] [phone] Social History Tobacco Use Types Packs/Day Years Used Date Smoking Tobacco: Never Sex and Gender Information Value Date Recorded [...] Description 10/12/2024 9:00 AM EST Medication Management [facility] [address] [place], [place] [phone] Jame Carpenter, PharmD [address] [place] [address] documented as of this encounter Procedures Procedure Name Priority Date/Time Associated Diagnosis Comments HM COLONOSCOPY Routine 05/21/2016 1:59 PM EDT documented in this encounter Results * Colonoscopy (05/21/2016 1:59 PM EDT) Colonoscopy Normal Normal 05/21/2016 1:59 PM EDT Cordell Loza MD HEALTH MAINTENANCE Edited Result - Final documented in this encounter Visit Diagnoses Not on filedocumented in this encounter Additional Health Concerns Assessment Noted Time PHQ-9 Depression Total Score: 0 11/24/19 23 3:10 PM EDT documented as of this encounter Care Teams Supervisor Sewing Room Relationship Specialty Start Date End Date Mamie Bolanos MD [address] [place] [address] PCP - General Family Medicine 09/23/15 Jame Carpenter, NhungD [address] [place] [phone] Pharmacist Internal Medicine 07/21/23 documented as of this encounter
--- OUTSIDE RECORDS SUMMARY | 2024-10-10 18:22 | XMS_ITS | Encounter Summary ---
Author Organization [facility] [facility] Address [address] [place] [address] 7t [place] [address] Care Team Providers Care Transplant Case Manager Name Role Phone Mamie Bolanos MD Primary Care Provider [phone] Jame Carpenter PharmD Unavailable [phone] Reason for Visit * Reason Comments Med Refill Encounter Details Date Type Department Care Team (Late Contact Info) Description 10/22/2022 Refill [facility] [address] [place] [address] [phone] Breann Mclain MD [address] [place], [place] [phone] Social History Tobacco Use Types Packs/Day Years [...] suspected to have Coronavirus/COVID-19? No / Unsure 10/13/2022 2:52 PM EST documented as of this encounter Plan of Treatment Upcoming Encounters Date Type Department Care Team (Late Contact Info) Description 10/12/2024 9:00 AM EST Medication Management [facility] [address] [place] [phone] Jame Carpenter, PharmD [address] [place], [place] [phone] documented as of this encounter Visit Diagnoses Not on filedocumented in this encounter Care Teams Transplant Case Manager Relationship Specialty Start Date End Date Mamie Bolanos MD [address] [place], [place] [phone] PCP - General Family Medicine 09/23/15 Jame Carpenter, Mendoza [address] [place] [address] Pharmacist Internal Medicine 07/21/23 documented as of this encounter
--- OUTSIDE RECORDS SUMMARY | 2024-10-10 18:23 | XMS_ITS | Encounter Summary ---
Author Organization [employer] Address [address] [facility] [address] 7t [place] [address] Care Team Providers Care Facility Maintenance Technician Name Role Phone Mamie Bolanos MD Primary Care Provider [phone] Jame Carpenter PharmD Unavailable [phone] Encounter Details Date Type Department Care Team (Latest Contact Info) Description 10/09/2024 Travel Social History Tobacco Use Types Packs/Day Years [...] Description 10/12/2024 9:00 AM EST Medication Management [facility] [address] [place] [address] Jame Carpenter PharmD [address] [place] [phone] documented as of this encounter Goals Goal [...] documented as of this encounter Care Teams Facility Maintenance Technician Relationship Specialty Start Date End Date Mamie Bolanos MD [address] [place] [address] PCP - General Family Medicine 09/23/15 Jame Carpenter PharmD [address] [place] [phone] Pharmacist Internal Medicine 07/21/23 documented as of this encounter
--- OUTSIDE RECORDS SUMMARY | 2024-10-10 18:23 | XMS_ITS | Encounter Summary ---
Author Organization [facility] Address [address] [facility] 7t [place] [address] Care Team Providers Care Felt Checker Name Role Phone Mamie Bolanos MD Primary Care Provider [phone] Jame Carpenter PharmD Unavailable [phone] Encounter Details Date Type Department Care Team (Late st Contact Info) Description 08/23/2022 Abstract [facility] [address] [place] [address] [phone] Mamie Bolanos MD [address] [place] [address] [phone] Social History Tobacco Use Types Packs/Day Years Used Date Smoking Tobacco: Never Tobacco Cessation:Counseling Given: Not Answered Sex and Gender Information Value Date Recorded [...] suspected to have Coronavirus/COVID-19? No / Unsure 08/24/2022 9:57 AM EST documented as of this encounter Plan of Treatment Upcoming Encounters Date Type Department Care Team (Late st Contact Info) Description 10/12/2024 9:00 AM EST Medication Management [facility] [address] [place] [phone] Jame Carpenter, PharmD [address] [place], [place] [phone] documented as of this encounter Visit Diagnoses Not on filedocumented in this encounter Care Teams Felt Checker Relationship Specialty Start Date End Date Mamie Bolanos MD [address] [place], [place] [phone] PCP - General Family Medicine 09/23/15 Jame Carpenter PharmD [address] [place] [address] Pharmacist Internal Medicine 07/21/23 documented as of this encounter
--- OUTSIDE RECORDS SUMMARY | 2024-10-10 18:23 | XMS_ITS | Encounter Summary ---
Author Organization [employer] Address [address] [facility] 7t [place] [address] Care Team Providers Care Medical Dosimetrist Name Role Phone Mamie Bolanos MD Primary Care Provider [phone] Jame Carpenter PharmD Unavailable [phone] Reason for Visit * Reason Onset Date Comments Lab Orders 10/10/2024 Encounter Details Date Type Department Care Team ([facility] st Contact Info) Description 10/10/2024 Telephone [facility] [address] [place], [place] [phone] Mamie Bolanos MD [address] [place], [place] [phone] Lab Orders Social History Tobacco Use Types Packs/Day Years [...] encounter Miscellaneous Notes * Telephone Encounter - Cherrie Rodgers RN - 10/10/2024 2:30 PM EST Pt walked in asking for TB test that he said the doctor was going to order. He saw PCP Dr Bolanos yesterday 10/09/24. Nothing in note. nutrition assistant for Dr Bolanos stated pt brought up needing test for program. 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 Spoke to PCP in office, got verbal order from Dr Cici virgen to order [facility] lab. documented in this encounter Plan of Treatment Upcoming Encounters Date Type Department Care Team (Late st Contact Info) Description 10/12/2024 9:00 AM EST Medication Management [facility] [address] [place] [address] Jame Carpenter, PharmD [address] [place] [address] Scheduled Orders Name Type Priority Associated Diagnoses Orde r Schedule [facility]-SPOT??.TB Lab Routine Screening for tuberculosis Expected: 10/10/2024 (Approximate), Expires: 10/10/2025 documented as of this encounter Goals Goal Patient Goal Type Associated Problems Recent Progress Patient-Stated? Author Blood Pressure < 140/90 Blood Pressure 123/69(2024 2:15 PM EST) No Jame Carpenter PharmD Hemoglobin A1c < 7 Result Component 8.8( 2:17 PM EST) No Jame Carpenter PharmD documented as of this encounter Visit Diagnoses Diagnosis Health care maintenance Screening for tuberculosis Screening examination for pulmonary tuberculosis documented in this encounter Additional Health Concerns Assessment Noted Time PHQ-9 Depression Total Score: 8 05/15/20 24 1:14 PM EDT documented as of this encounter Care Teams Medical Dosimetrist Relationship Specialty Start Date End Date Mamie Bolanos MD [address] [place] [address] PCP - General Family Medicine 09/23/15 Jame Carpenter, Mendoza [address] [place] [address] Pharmacist Internal Medicine 07/21/23 documented as of this encounter
--- OUTSIDE RECORDS SUMMARY | 2024-10-10 18:23 | XMS_ITS | Encounter Summary ---
Author Organization [facility] Address [address] [facility] 7t [place] [address] Care Team Providers Care Craft Artist Name Role Phone Mamie Bolanos MD Primary Care Provider [phone] Jame Carpenter PharmD Unavailable [phone] Encounter Details Date Type Department Care Team (Latest Contact Info) Description 04/24/2022 Abstract [facility] Dental, Provider, DDS Social History Tobacco Use Types Packs/Day Years Used Date Smoking Tobacco: Never Assessed Sex and Gender Information Value Date Recorded [...] Description 10/12/2024 9:00 AM EST Medication Management [facility] [address] [place] [address] Jame Carpenter, PharmD [address] [place] [phone] documented as of this encounter Visit Diagnoses Not on filedocumented in this encounter Care Teams Craft Artist Relationship Specialty Start Date End Date Mamie Bolanos MD [address] [place] [address] PCP - General Family Medicine 09/23/15 Jame Carpenter, PharmD [address] [place] [phone] Pharmacist Internal Medicine 07/21/23 documented as of this encounter
[2024-10-13 16:28] LABS: TS Negative Control Passed; TS Panel A 0; TS Panel B 0; TS Positive Control Passed; TSpotTB Negative (Negative)
== END 2024-10-10 14:42 | disposition home or self-care (01) ==
LOC: HO.HHCL 14:41
PROVIDERS: Visit Provider Family Medicine
DX: Z11.1 Encounter for screening for respiratory tuberculosis (principal)
CPT/HCPCS: 36415; 86481

== ENCOUNTER 2025-01-20 08:57 | Emergency (ER) | payer OTHER, SELFPAY ==
--- NOTE | ~2025-01-20 | XR_ITS ---
CLINICAL HISTORY: dropped table on 2 second toe Three views of the right second toe. COMPARISON: None FINDINGS: Cortical irregularity along the distal aspect of the 2nd middle phalanx seen only on lateral imaging. Otherwise the bones of the 2nd digit appear intact. Visualized adjacent bones appear intact. No radiopaque foreign body. IMPRESSION: 1. Question nondisplaced fracture of the 2nd middle phalanx. Recommend correlation with point tenderness. This document has been electronically signed by: Pascual Hull MD on 01/20/2025 13:32:55
[2025-01-20 09:17] VITALS: BP 139/71; PULSE 65; RESP 18; TEMP 36.8; O2SAT 98; BMI 24.5
[2025-01-20 13:03] VITALS: BP 137/73; PULSE 56; RESP 18; TEMP 36.6; O2SAT 97
[2025-01-20] MEDS: Fluorescein Sodium STRIP 1 STRIP EYE-LEFT (13:55)
[2025-01-20] MEDS: Tetracaine HCl/PF 0.5% Oph Sol 4 ML DROPS 1 DROP EYE-LEFT (13:55)
--- NOTE | 2025-01-20 14:04 | ED.EYEPROB ---
HPI - Eye Problem General Chief complaint: Eye Problems Stated complaint: fb in l eye Time Seen by Provider: 01/20/25 12:38 Source: patient Mode of arrival: ambulatory Limitations: no limitations History of Present Illness ED Provider: BERTHA SHIELDS PA-C HPI Narrative: 64 year old male with pmhx of type 2 diabetes mellitus, diabetic neuropathy, hypertension, GERD, and glaucoma presents with concern for left eye pain after scratching it with a tree branch yesterday. Reports standing up from under a tree when a small branch grazed his left eye. He attempted to wash out his eye at home, but feels like there is something stuck in his eye. Reports he is having blurred vision secondary to excessive tearing. Admits to waking up this morning with his eye crusted shut. He denies any significant pain to his left eye. Denies pain to the eye prior to the incident. 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 He has an appointment with them next month. He does not wear contact lenses. The patient also states he dropped a table on right second toe yesterday and is having pain. He has not tried anything for the pain. He is still able to ambulate without difficulty. Related Data Home Medications ?Medication ?Instructions ?Recorded ?Confirmed alcohol swabs (Alcohol Prep Pads) 1 pad topical TID 06/02/22 06/09/22 aspirin 81 mg tablet,delayed 81 mg PO DAILY 06/02/22 06/22/24 release atorvastatin 80 mg tablet 80 mg PO BEDTIME 06/02/22 06/22/24 blood sugar diagnostic (FreeStyle #10 ea 06/02/22 06/09/22 Lite Strips) dulaglutide 3 mg/0.5 mL 3 mg subcut QWEEK 06/02/22 06/22/24 subcutaneous pen injector (Trulicity) empagliflozin 25 mg tablet 25 mg PO QAM 06/02/22 06/22/24 (Jardiance) fenofibrate 160 mg tablet 160 mg PO QAM 06/02/22 06/22/24 lancets 33 gauge (TRUEplus Lancets) #100 ea 06/02/22 06/09/22 lisinopril 40 mg tablet 40 mg PO QAM 06/02/22 06/22/24 metformin 1,000 mg tablet 1,000 mg PO BID 06/02/22 06/22/24 metoprolol succinate 100 mg 100 mg PO DAILY 06/02/22 06/22/24 tablet,extended release 24 hr omeprazole 40 mg capsule,delayed 40 mg PO DAILY 06/02/22 06/22/24 release sertraline 100 mg tablet 100 mg PO BID 06/02/22 06/22/24 Previous Rx's ?Medication ?Instructions ?Recorded erythromycin 5 mg/gram (0.5 %) eye 1 appl ophthalmic-Left QID 7 days 01/20/25 ointment #3.5 grams Allergies Allergy/AdvReac Type Severity Reaction Status Date / Time No Known Allergies Allergy Verified 01/20/25 09:18 Review of Systems Review of Systems: Constitutional: No fever, chills, fatigue, night sweats, weight changes ENT/Mouth: No ear pain, hearing loss, nasal congestion, sinus pain, rhinorrhea, sore throat Eyes: No eye pain, swelling, redness, vision changes, discharge, +eye irritation/tearing Cardio: No chest pain, palpitations, CAVAZOS, orthopnea, peripheral edema Pulm: No SOB, cough, sputum, wheezing, dyspnea, hemoptysis GI: No nausea, vomiting, hematemesis, abdominal pain, diarrhea, constipation, hematochezia, melena : No irregular bleeding, dysuria, frequency, urgency, hesitancy, hematuria, flank pain, urinary flow changes, urinary incontinence or retention MSK: No back pain, neck pain, joint pain, myalgias, +R 2nd toe pain Skin: No lesions, rashes Neuro: No weakness, numbness, paresthesias, LOC, dizziness, headache Psych: No anxiety/panic, depression, SI/HI, AH/VH All other systems reviewed and are negative. [facility] Past Medical History Attestation statement: The following information was validated with the patient. Source: old records reviewed and nursing notes reviewed Medical History Glaucoma Elevated cholesterol Otitis media Left ventricular outflow tract obstruction Essential hypertension Diabetic polyneuropathy Tubular adenoma of colon GERD (gastroesophageal reflux disease) Anxiety Diabetes mellitus Surgical History Hx of knee surgery History of esophagogastroduodenoscopy (EGD) H/O colonoscopy Social History Social History Alcohol intake: current Alcohol intake frequency: holidays/special occasions only Patient Tobacco Use Status: Former Tobacco user Tobacco use type: Cigarette Physical Exam Vital Signs: Vital Signs: Last Vital Signs Temp 97.8 F 01/20/25 14:51 Pulse 56 01/20/25 14:51 Resp 18 01/20/25 14:51 BP 137/73 01/20/25 14:51 Pulse Ox 97 01/20/25 14:51 O2 Del Method Room Air 01/20/25 14:51 BMI result Body Mass Index 24.5 Hypertensive General: Well appearing, in no acute distress. Skin: Warm, dry, intact. No rashes or lesions. Head: Normocephalic, atraumatic. EENT: Hearing is intact b/l. Moist mucous membranes.? +No periorbital swelling. No enophthalmous or exopthalmous. EOMs intact without pain or entrapment. PERRLA. Positive photophobia to L eye. No obvious foreign body or abrasion. Positive L conjunctival injection. No chemosis. No hazy cornea. IOP OD 21, IOP OS 30. No FB noted on eyelid eversion. On tetracaine exam, small linear area of reuptake noted to cornea at 8clock. No FB. No ulceration. No dendritic lesions. Neck: Supple without LAD. FROM. Trachea midline.? Cardiac: Chest wall symmetric. RRR Lungs: Normal respiratory effort without accessory muscle use. CTA bilaterally Ext: +Mild swelling noted to second toe with tenderness to palpation. no nailbed involvement. Full ROM throughout. Pulses 2+ equal and bilateral. Neuro: AOx3. Normal speech. Psych: Appropriate mood and affect. Responds appropriately to questions. Course Course Course Narrative: Physical exam findings concerning for corneal abrasion. Erythromycin ointment prescribed. Advised dielectric embossing machine operator follow up. He will be seeing them next month. X-ray right 2nd toe concerning for fracture. Toe north-taped. Postop shoe applied for comfort. Patient has remained stable throughout ED visit today. Discussed worrisome signs and symptoms and when to return to the ED. All questions answered at this time. Patient is agreeable with disposition and stable for discharge. Medications Administered Discontinued Medications Generic Name Dose Route Start Last Admin Trade Name Freq PRN Reason Stop Dose Admin Fluorescein Sodium 1 strip 06/07/25 13:05 01/20/25 13:55 Fluorescein Sodium Strip EYE-LEFT 01/20/25 13:06 1 strip ONCE ONE Administration Tetracaine HCl 1 drop 01/20/25 13:05 01/20/25 13:55 Tetracaine Hcl/Pf 0.5% Oph Crista 4 Ml Drops EYE-LEFT 01/20/25 13:06 1 drop ONCE ONE Administration Medical Decision Making Medical Decision Making MDM Narrative: 64 year old male with pmhx of type 2 diabetes mellitus, diabetic neuropathy, hypertension, GERD, and glaucoma presents with concern for left eye pain after scratching it with a tree branch yesterday. on exam, no periorbital swelling. No enophthalmous or exopthalmous. EOMs intact without pain or entrapment. PERRLA. Positive photophobia to L eye. No obvious foreign body or abrasion. Positive L conjunctival injection. No chemosis. No hazy cornea. IOP OD 21, IOP OS 30. No FB noted on eyelid eversion. On tetracaine exam, small linear area of reuptake noted to cornea at 8clock. No FB. No ulceration. No dendritic lesions. Mild swelling noted to second toe with tenderness to palpation. no nailbed involvement. Full ROM throughout. Pulses 2+ equal and bilateral. Differential diagnosis includes corneal abrasion, corneal foreign body, viral vs bacterial conjunctivitis, allergic conjunctivitis. Unlikely preseptal or orbital cellulitis, acute angle closure glaucoma, iritis, keratitis, scleritis, uveitis, herpes ophthalmicus. Concern for toe contusion, fracture. Unlikely NV compromise, threat to limb, compartment syndrome. Plan for tetracaine/fluorescein exam, x-ray right 2nd toe, re-evaluation. Differential Diagnosis Differential Diagnoses: The differential diagnosis associated with the presentation includes as above. Independent Interpretation I performed an independent interpretation of an: Plain X-Ray Interpretation: xr right 2nd toe w/ fracture Radiology Impression Discussion of test interpretation with radiology: I have reviewed the radiologist's reading. Radiologist Impression: Date of Service: 01/20/25 Procedure(s): XR toe RT min 2V Accession Number(s): [id number] cc: Bertha Shields; Mamie Bolanos MD~ CLINICAL HISTORY: dropped table on 2 second toe Three views of the right second toe. COMPARISON: None FINDINGS: Cortical irregularity along the distal aspect of the 2nd middle phalanx seen only on lateral imaging. Otherwise the bones of the 2nd digit appear intact. Visualized adjacent bones appear intact. No radiopaque foreign body. IMPRESSION: 1. Question nondisplaced fracture of the 2nd middle phalanx. Recommend correlation with point tenderness. This document has been electronically signed by: Pascual Hull MD on 01/20/2025 13:32:55 External Record Review External record reviewed: Inpatient record Prescription Management I considered prescription management with: Pain Medication and Antibiotic (Erythromycin ointment) Social Determinants Patient?s care significantly limited by Social Determinants of Health including: Other Social Determinant of Health Procedures Orthopedic Splinting/Casting Injury #1: Side: right Lower Extremity Injury Location: toe Lower Extremity Immobilizer: post-op shoe and north tape Critical Care Time Critical Care Time Critical Care Time: No Discharge Plan Discharge Clinical Impression: Corneal abrasion, Closed fracture of phalanx of right second toe Patient Disposition: Home, Self-Care Instructions: Erythromycin (Into the eye), Corneal Abrasion (ED), Photophobia (ED), Post Surgical Shoe (ED) Additional Instructions: You were evaluated in the ED today for left eye irritation after scratching the eye with a tree branch. Your workup today shows abrasion to the cornea of your left eye. There is no identifiable foreign body to remove. As discussed, treatment for this is with an antibiotic eye ointment. Erythromycin ointment has been sent to the pharmacy. Apply this to your left eye 4 times daily for 7 days. Do not put anything else in the eye, other than your eye drops for glaucoma. I want to to follow up with your dielectric embossing machine operator this week. Please call their office Wednesday morning for urgent follow up. You were also endorsing pain to your 2nd toe on your right foot after dropping a table on a yesterday. X-rays are concerning for fractured toe. We applied north-taped today and you were given a postop shoe to wear to take pressure off the toe. You may take Tylenol and Motrin at home as needed for pain/discomfort. Follow up with your primary care provider as needed. Return with any new or worsening symptoms. In the case of an emergency call 911. Prescriptions: New erythromycin 5 mg/gram (0.5 %) ointment 1 appl ophthalmic-Left QID 7 Days Qty: 3.5 0RF No Action sertraline 100 mg tablet 100 mg PO BID (DME) FreeStyle Lite Strips Strip See Rx Instructions .ROUTE .MEDSUPPLY Qty: 10 Rx Instructions: As directed metoprolol succinate 100 mg tablet extended release 24 hr 100 mg PO DAILY Jardiance 25 mg tablet 25 mg PO QAM metformin 1,000 mg tablet 1,000 mg PO BID aspirin 81 mg tablet,delayed release (DR/EC) 81 mg PO DAILY omeprazole 40 mg capsule,delayed release(DR/EC) 40 mg PO DAILY lisinopril 40 mg tablet 40 mg PO QAM fenofibrate 160 mg tablet 160 mg PO QAM Trulicity 3 mg/0.5 mL pen injector 3 mg subcut QWEEK (DME) lancets [TRUEplus Lancets] 33 gauge misc See Rx Instructions .ROUTE .MEDSUPPLY Qty: 100 Rx Instructions: As directed alcohol swabs [Alcohol Prep Pads] Pads, Medicated 1 pad topical TID atorvastatin 80 mg tablet 80 mg PO BEDTIME Referrals: Jace Farias [Physician] - 1 week (corneal abrasion) Mamie Bolanos MD [Primary Care Provider] - Interventions: ED Discharge Assessment Last Done: 01/20/25 14:51 Discharge Date/Time: 01/20/25 14:51 Print Language: Nepali
[2025-01-20 14:51] VITALS: BP 137/73; PULSE 56; RESP 18; TEMP 36.6; O2SAT 97
== END 2025-01-20 14:51 | disposition home or self-care (01) ==
PROVIDERS: Emergency Provider Emergency Medicine; PCP Family Medicine
DX: S92.521A Displaced fracture of middle phalanx of right lesser toe(s), initial encounter for closed fracture (principal); W20.8XXA Other cause of strike by thrown, projected or falling object, initial encounter; S05.02XA Injury of conjunctiva and corneal abrasion without foreign body, left eye, initial encounter; X58.XXXA Exposure to other specified factors, initial encounter; Y93.9 Activity, unspecified; Y92.9 Unspecified place or not applicable; Y99.9 Unspecified external cause status; H57.12 Ocular pain, left eye; E11.9 Type 2 diabetes mellitus without complications; I10 Essential (primary) hypertension; K21.9 Gastro-esophageal reflux disease without esophagitis; H53.8 Other visual disturbances
CPT/HCPCS: 73660; 99282; 99284

== ENCOUNTER → 2025-01-20 13:03 | Outpatient (BNV) | payer OTHER, SELFPAY | PROVIDERS: Emergency Provider Emergency Medicine; PCP Family Medicine; Visit Provider Radiology Diagnostic Radiology | DX: M79.674 Pain in right toe(s) (principal) | CPT/HCPCS: 73660 ==